=== PATIENT | male | born 1945 | race Caucasian/White ===

== ENCOUNTER 2016-10-16 19:29 | Inpatient (IN) | payer MEDICARE, OTHER ==
--- NOTE | ~2016-10-16 | DS ---
Discharge Summary [facility] [address] [place]. [address] NAME: RENETTA RODRIGUES : 45 STATUS : DIS IN PAT#: [id number] AGE: 71 ADM/REG DATE : 10/16/16 MR#: [id number] REPORT SERV DATE: 10/21/16 DICTATED BY: VENICE REA DATE: 10/20/16 REPORT STATUS : Draft TRANSCRIBED BY: MODL DATE: 10/20/16 ADMISSION DATE: 10/16/2016 DISCHARGE DATE: 10/20/2016 PRINICIPAL DIAGNOSIS: Crohn's disease with exacerbation and partial small-bowel obstruction. SECONDARY DIAGNOSES: 1. Type 2 diabetes exacerbated by steroids. 2. Chronic obstructive pulmonary disease. 3. Atrial fibrillation. 4. Sleep apnea. HISTORY OF PRESENT ILLNESS: Please see Dr. Song's dictation of 10/16/2016. HOSPITAL COURSE: Admitted with symptoms of small-bowel obstruction with chronic diarrhea but episode of nausea and vomiting. There was a concern about stricture formation, seen by Surgery, but not felt to be surgical, in fact the patient on steroids and antibiotics had some improvement in his gut function returning to his baseline diarrhea. However, it was felt that the patient was not optimally controlled despite Imuran therapy and salicylates. He was put on intravenous steroids and transitioned to p.o. steroids by 10/21/2016 but with a consideration for Remicade to be started within coming days. He was tolerating advancement of his diet, eating well, and other than some elevated blood sugar was doing well enough, and he returned home on 10/21/2016. He was increasing his Lantus to 50 units at bedtime with 10 units of NovoLog with meals. Close followup Dr. Matt River regarding his glucose. Close followup with Dr. Chandler Beard regarding his Crohn's. Other medications were the same. VANESSAM/MARION Venice Rea M.D. / [id number] CC: Caterina Boland M.D. Vijaykurmar Patel, M.D.
--- NOTE | ~2016-10-16 | CN ---
Consultation Report [facility] [address] [place]. [address] NAME: RENETTA RODRIGUES : 45 STATUS : ADM IN PAT#: [id number] AGE: 71 ADM/REG DATE : 10/16/16 MR#: [id number] REPORT SERV DATE: 10/18/16 DICTATED BY: SHELIA DOMINGUEZ DATE: 10/17/16 REPORT STATUS : Draft TRANSCRIBED BY: MODL DATE: 10/17/16 GI CONSULTATION DATE OF CONSULTATION: REASON FOR CONSULTATION: Crohn's exacerbation. HISTORY OF PRESENT ILLNESS: This is a 71-year-old white male who is a patient of Dr. Chandler Sánchez. He has history of Crohn disease which he had a colonoscopy in October 2003 with pathology showing focal ulceration with mixed inflammation in the terminal ileum. The causes though did include ileitis from Crohn's and NSAIDs. He has had a colonoscopy in May 2012 that showed normal terminal ileum and ascending polyp and hemorrhoids. Pathology showed the polyp to be adenomatous. He has come in with complaints of abdominal distention and discomfort, nausea, and decreased stooling. He was found on CT to have what appeared to be multiple segments of the distal ileum with prominent submucosal fat planes and sequelae of inflammatory bowel disease with no active changes. He had a low-grade partial small bowel obstruction with dilated small bowel segments. He also is status post cholecystectomy and has a small umbilical fat containing hernia. He had a KUB done that did show a worsening of the obstructive pattern. He has had a bowel movement today and passed gas and feels much better and feels the abdominal distention has lessened a great deal. The patient denies any fever, did report having some chills. He is currently on Imuran. He has tried Humira in the past which caused him to go into heart failure. There were interested. He and his were present and report a similar episode about two years ago which was worse requiring an OG tube for decompression. PAST MEDICAL HISTORY: Does include kidney stones, gout, BPH, asbestosis exposure, GERD, CVA, coronary artery disease, atrial fibrillation, diabetes, Crohn's disease, COPD, elevated cholesterol, vertigo, anemia, hypertension, obstructive sleep apnea. PAST SURGICAL HISTORY: Includes coronary artery bypass grafting, appendectomy, cholecystectomy, umbilical hernia repair, right shoulder repair and left shoulder repair, and elbow surgery. SOCIAL HISTORY: Noncontributory. REVIEW OF SYSTEMS: 10-point review of systems, otherwise negative. HABITS: He was former smoker. Denies any current smoking. He quit when he was 40 years old. No alcohol abuse. No drugs. Currently for 52 years. Resides in [place]. ALLERGIES: MORPHINE. HOME MEDICATIONS: Includes albuterol, allopurinol, artificial tears, Lipitor, azathioprine Consultation Report [address] [place]. [address] NAME: RENETTA RODRIGUES : 45 STATUS : ADM IN [facility]#: [id number] AGE: 71 ADM/REG DATE : 10/16/16 MR#: [id number] REPORT SERV DATE: 10/18/16 DICTATED BY: SHELIA DOMINGUEZ DATE: 10/17/16 REPORT STATUS : Draft TRANSCRIBED BY: MARION DATE: 10/17/16 50 mg twice a day, Zyrtec, Klonopin, dicyclomine, diltiazem, Pepcid, Flonase, Advair, insulin, lisinopril, Imodium, Pentasa, multivitamin, nitroglycerin, sucralfate, Spiriva, Jantoven. CURRENT MEDICATIONS: In hospital include Levaquin, Solu-Medrol, Levemir, Coumadin, Spiriva, Pentasa, Prinivil, Pepcid, Imuran, Zyloprim, insulin, Carafate, Bentyl. PHYSICAL EXAMINATION: VITAL SIGNS: Temp is 97.9, blood pressure 133/60, pulse 110, respirations 20. HEENT: Normocephalic, atraumatic. Extraocular muscles are intact. HEART: Irregular. LUNGS: Clear to auscultation bilaterally without rales or rhonchi. ABDOMEN: Few bowel sounds heard. Mild distention. He has some tenderness mainly in the left lower quadrant. EXTREMITIES: No cyanosis, clubbing, or edema. NEUROLOGIC: He is alert and oriented, and answers questions appropriately. PSYCHIATRIC: Normal mood and affect. IMPRESSION: 1. Crohn's exacerbation. 2. Partial small bowel obstruction, appears to be resolving. 3. History of paroxysmal atrial fibrillation on Coumadin. 4. Diabetes. 5. Sleep apnea. 6. Chronic obstructive pulmonary disease. RECOMMENDATION: 1. I agree with antibiotics. We will put him on also Solu-Medrol 20 q. 6 hours. 2. We will need to monitor his blood sugar while on steroids. 3. Mild liver enzyme elevation. We will repeat liver enzymes in the morning. 4. Discussed with the patient may be alternative treatments that we could try to help with his Crohn's. At this point, we will continue current management. SPENCER/MARION Shelia Dominguez M.D. / [id number] CC: Caterina Boland M.D.
--- NOTE | ~2016-10-16 | HP ---
History And Physical [address] [place]. [address] NAME: RENETTA RODRIGUES : 45 STATUS : ADM IN [facility]#: [id number] AGE: 71 ADM/REG DATE : 10/16/16 MR#: [id number] REPORT SERV DATE: 10/17/16 DICTATED BY: LAURA AQUINO DATE: 10/16/16 REPORT STATUS : Draft TRANSCRIBED BY: MODL DATE: 10/16/16 DATE OF ADMISSION: 10/16/2016 CHIEF COMPLAINT: A 71-year-old male presenting with increasing abdominal pain and distention. HISTORY OF PRESENTING ILLNESS: The patient's history was obtained through careful interview with the patient and coupled with review of [facility] and [facility] medical records. The patient, for the last three days, has had increasing abdominal distention. He has tried to decrease his food intake and take mild pain medications to help with this problem. He has developed increasing nausea, but no vomiting as of yet. Last night, the pain became so severe that he could not even sleep, but then he tried to tolerate the pain throughout the day and then finally had to come to the emergency department. He describes lower quadrant abdominal pain, mostly that comes and goes, a shooting like quality up to 10+ out of 10 severity, affecting his left side more than the right. His last bowel movement was more than 24 hours ago and he has not even passed the gas over that period of time. He has had chills and shaking, but no fevers. He has a chronic cough for three months or more with a slight intermittently productive yellow sputum. No shortness of breath. No chest pain. No recent new medications. REVIEW OF SYSTEMS: Otherwise, a 14-point review of systems was obtained and was negative. PAST MEDICAL HISTORY: 1. Coronary artery disease, status post CABG. 2. Atrial fibrillation, followed by Dr. Tse. 3. Diabetes. He admits to being poorly compliant with his diet and medications at that time. Some blood sugars have been over 200. 4. Crohn's colitis, but has never had a surgical intervention for this. 5. COPD. 6. Elevated cholesterol. 7. Vertigo. 8. Anemia. 9. Hypertension. 10.Obstructive sleep apnea, on CPAP. 11.Asbestosis. History And Physical [address] [address] NAME: RENETTA RODRIGUES : 45 STATUS : ADM IN PAT#: [id number] AGE: 71 ADM/REG DATE : 10/16/16 MR#: [id number] REPORT SERV DATE: 10/17/16 DICTATED BY: LAURA AQUINO DATE: 10/16/16 REPORT STATUS : Draft TRANSCRIBED BY: MODStephania DATE: 10/16/16 12.Gastroesophageal reflux disorder. 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 14.Nephrolithiasis. 15.Benign prostatic hypertrophy. 16.Gout. PAST SURGICAL HISTORY: 1. CABG, 2006. 2. Appendectomy. 3. Cholecystectomy. 4. Umbilical hernia repair, seen by Dr. Hidalgo. 5. Right shoulder repair x2. Left shoulder repair x1. 6. Elbow surgery x2. ALLERGIES: MORPHINE. SOCIAL HISTORY: Quit smoking when he was 40 years old, but had smoked about two packs per day since he was 15 years of age. No alcohol abuse. He has been to his for 52 years. They have two sons, two granddaughters. They lived in [place], [place]. He is retired for working to the [employer]. He states for at least a decade he used to do significant work with asbestos while working with the [employer] and likely had extensive exposure. FAMILY HISTORY: Mother with pacemaker and kidney tumor. Father with heart disease and stroke. No inflammatory bowel disease. CURRENT MEDICATIONS: Include albuterol inhaler, allopurinol 150 mg p.o. daily, eye drops, Lipitor 20 mg p.o. daily, Imuran 50 mg p.o. b.i.d., Zyrtec 10 mg p.o. daily, Klonopin 1 mg p.o. q.h.s., Bentyl 20 mg p.o. q.4 hours four times a day, diltiazem extended release 360 mg p.o. daily, Pepcid 20 mg p.o. daily, Flonase, Advair inhaled twice a day, Lantus 35 units subcutaneously at bedtime, sliding-scale insulin, lisinopril 20 mg p.o. b.i.d., Imodium p.r.n., Pentasa a 1000 mg p.o. four times a day, multivitamin, nitroglycerin p.r.n., sucralfate 1 g before meals and at bedtime, Spiriva inhaled daily, Coumadin 5.5 mg p.o. q.h.s. PHYSICAL EXAMINATION: VITAL SIGNS: Temperature 98.6, pulse 83, blood pressure 167/72, respiratory rate 16, O2 saturation 97% on room air. GENERAL: A pleasant, cooperative male, but in evidence of some distress secondary to abdominal pain and nausea. HEENT: Pupils equal, round, and reactive to light. No conjunctival pallor. No scleral icterus. Nares are patent. Oropharynx is clear of obstruction. He may have some slight sores in the back of his mouth. He has a very dry mucous membrane. NECK: Trachea midline. No thyromegaly. LYMPH: No cervical lymphadenopathy. No supraclavicular lymphadenopathy. RESPIRATORY: Clear to auscultation at bases. No wheezes, rales, or rhonchi. Normal respiratory effort. History And Physical [address] [address] NAME: RENETTA RODRIGUES : 45 STATUS : ADM IN PAT#: [id number] AGE: 71 ADM/REG DATE : 10/16/16 MR#: [id number] REPORT SERV DATE: 10/17/16 DICTATED BY: LAURA AQUINO DATE: 10/16/16 REPORT STATUS : Draft TRANSCRIBED BY: MARION DATE: 10/16/16 CARDIOVASCULAR: Regular rate and rhythm. No murmurs, rubs, or gallops. No extremity edema is appreciated. ABDOMEN: Quite distended by exam with diffuse tympanic, resonance, percussed throughout entire examination. There is no guarding, no rebound. Diminished bowel tones. Even in some parts of his abdominal exam they are absent. He has no appreciable hepatosplenomegaly. DERMATOLOGIC: Warm and dry. EXTREMITIES: No pallor. No cyanosis. PSYCHIATRIC: Normal affect. Good mood. Alert and oriented x3. LABORATORY DATA: White blood count of 5.6, hemoglobin 12, hematocrit 36, platelets 208. Sodium 141, potassium 4.1, chloride 104, bicarb 26, BUN 14, creatinine 0.87, glucose 118. ESR 29. INR 2.2. Lipase 57. Total bilirubin of 1.8. STUDIES: 1. EKG by my own evaluation shows sinus rhythm. 2. CT scan of the abdomen and pelvis shows partial small bowel obstruction. There seems to be some evidence that this may be coming from chronic inflammatory changes of the ileum with apparent changes that are consistent with Crohn's disease, although difficult to ascertain by CT scan if there is truly acute versus just chronic Crohn's disease apparently. ASSESSMENT AND PLAN: 1. Crohn's exacerbation. This is a presumptive diagnosis. I would like to start IV steroids, IV Levaquin, and Flagyl and monitor closely. 2. Partial small bowel obstruction. Unable to place an NG tube secondary to a nasal septum defect. May need an OG tube (?). Place on IV fluids and make n.p.o., provide supportive care. Consider a surgery consult (?). The patient had seen Dr. Nnamdi Hidalgo in the past). 3. Paroxysmal atrial fibrillation. Check telemetry. Continue Coumadin. 4. Diabetes. Check hemoglobin A1c. Continue basal insulin and sliding scale insulin. 5. Obstructive sleep apnea, on CPAP. 6. Chronic obstructive pulmonary disease. KPL/MODL Laura Aquino M.D. / [id number] CC: Caterina Boland M.D. Vijaykurmar Patel, M.D.
[2016-10-16 16:34] LABS: BASOPHILS 0.4 %; BASOPHILS ABSOLUTE 0.02 10/3/uL (0.0-0.16); EOSINOPHILS ABSOLUTE 0.11 10/3/uL (0.0-0.53); ER CBC TAT 0 Hrs 07 Mins; HEMOGLOBIN 12.3 g/dL (13.6-17.8); IMMATURE GRANULOCYTES 0.7 %; IMMATURE GRANULOCYTES ABSOLUTE 0.04 10/3/uL (0.0-0.11); LYMPHOCYTES 20.6 %; LYMPHOCYTES ABSOLUTE 1.15 10/3/uL (0.67-4.30); MEAN CORPUS HGB CONC 34.2 g/dL (32.0-36.0); MEAN CORPUSCULAR HEMOGLOB 32.5 pg (26.0-34.0); MEAN PLATELET VOLUME 10.5 fL (9.2-13.0); MONOCYTES 10.2 %; MONOCYTES ABSOLUTE 0.57 10/3/uL (0.21-1.20); NEUTROPHILS 66.1 %; PLATELET COUNT 208 10/3/uL (150-400); RED CELL COUNT 3.78 10/6/uL (4.7-6.1); WHITE BLOOD CELLS 5.6 10/3/uL (4.5-10.5)
[2016-10-16 16:38] LABS: MANUAL DIFF NO %; MEAN CORPUSCULAR VOLUME 95.2 fL (80-100); RBC DISTRIBUTION WIDTH 17.7 % (12.0-16.0)
[2016-10-16 16:44] LABS: ASCORBIC ACID (UR NOT ORDER) NEG (NEG); BILIRUBIN, URINE NEGATIVE (NEG); KETONE, URINE TRACE MG/DL (NEG); LEUKOCYTE ESTERASE(NOT OR NEG (NEG); NITRITE (URINE) NEG (NEG); WBC (NOT ORDERED) (RFLEX) < 1 (0-5)
[2016-10-16 16:50] LABS: A/G RATIO 1.2 (0.7-1.9); ALBUMIN 3.6 G/DL (3.5-5.0); BUN (BLOOD UREA NITROGEN) 14 MG/DL (6-23); CALCIUM, SERUM 8.4 MG/DL (8.5-10.4); CHLORIDE, SERUM 104 MMOL/L (96-112); CO2 (CARBON DIOXIDE) 26 MMOL/L (24-34); CREATININE 0.87 MG/DL (0.70-1.30); GFR AFRICAN AMERICAN 101 ML/MIN (>=60); GFR NON AFRICAN AMERICAN 87 ML/MIN (>=60); GLOBULIN 3.1 G/DL (2.5-4.1); GLUCOSE, SERUM 118 MG/DL (60-99); POTASSIUM, SERUM 4.1 MMOL/L (3.5-5.3); SGOT(AST) 53 U/L (5-40); SGPT(ALT) 41 U/L (5-65); SODIUM, SERUM 141 MMOL/L (135-148); TOTAL BILIRUBIN 1.8 MG/DL (0-1.2); TOTAL PROTEIN 6.7 G/DL (6.0-8.5)
[2016-10-16 16:51] LABS: ALKALINE PHOSPHATASE 159 U/L (45-117)
[2016-10-16 17:53] LABS: INTERNATIONAL NORMAL RATI 2.2 UNITS (-); PARTIAL THROMBO TIME 43.3 SEC (22.5-37.2); PROTIME (NOT ORD) 23.9 SEC (12.0-14.5)
[2016-10-16 18:16] LABS: SED RATE 29 MM/HR (0-15)
[~2016-10-16 19:29] MED LIST: ADVAIR250 INH; BENTYL10 PO; BENTYL20 PO; BUM1 PO; BYETTA SC; C1 PO; C25 PO; C5 PO; CARDCD300 PO; CARDIZEM LA300 MG PO; CARDIZEM LA360 MG PO; CENTRUM TAB1 TAB PO; CETIRIZINE5 MG PO; CLARIT10 PO; COUMADIN3 MG PO; COUMADIN6 MG PO; FOLIC ACID PO; FOLIC ACID400 MC1 PO; Folic Acid; HUMALOG SC; IMU PO; JANTOVEN1 MG PO; KLONO1 PO; KLONOPIN WAF1 MG PO; LANTUS SC; LIPITOR20 PO; MULTIPLE VIT PO; NATURA2 OP; NEXIUM40 PO; NOVOLOG SC; PENTASA500 MG PO; PEP20 PO; PRILO PO; PRIN10 PO; PRIN20 PO; PROAIR HFA INH; SPIRIVA INH; SUCR PO; TAZTIA X3 PO; TRICOR145 PO; Z100 PO; ZOCOR20 PO; ZOL50 PO; ZYRTEC ALLGY10 MG PO; [UNRECOGNIZED DRUG - OTHER] PO; [UNRECOGNIZED DRUG - OTHER] PO
[2016-10-16] MEDS ORDERED: JANTOVEN1 MG PO (22:43)
[2016-10-16] MEDS ORDERED: PRIN20 PO (22:44)
[2016-10-16] MEDS ORDERED: LIPITOR20 PO (22:44)
[2016-10-16] MEDS ORDERED: KLONO1 PO (22:45)
[2016-10-16] MEDS ORDERED: Z100 PO (22:45)
[2016-10-16] MEDS ORDERED: IMU PO (22:46)
[2016-10-16] MEDS ORDERED: BENTYL20 PO (22:48)
[2016-10-16] MEDS ORDERED: PEP20 PO (22:48)
[2016-10-16] MEDS ORDERED: PROAIR HFA INH (22:49)
[2016-10-16] MEDS ORDERED: ADVAIR250 INH (22:49)
[2016-10-16] MEDS ORDERED: ALBUTEROL0.083 % INH (22:50)
[2016-10-16] MEDS ORDERED: SPIRIVA INH (22:51)
[2016-10-16] MEDS ORDERED: ZYRTEC ALLGY10 MG PO (22:51)
[2016-10-16] MEDS ORDERED: PENTASA500 MG PO (22:52)
[2016-10-16] MEDS ORDERED: SUCR PO (22:52)
[2016-10-16] MEDS ORDERED: LANTUSCART SC (22:53)
[2016-10-16] MEDS ORDERED: TAZTIA X3 PO (22:53)
[2016-10-16] MEDS ORDERED: HUMALOGPEN SC (22:53)
[2016-10-16] MEDS ORDERED: IMOD PO (22:54)
[2016-10-16] MEDS ORDERED: FLONASE NAS (22:55)
[2016-10-16] MEDS ORDERED: REFRESH OPH (22:56)
[2016-10-16] MEDS ORDERED: CENTRUM PO (22:56)
[2016-10-16] MEDS ORDERED: NITROQUICK0.4 MG SL (22:57)
[2016-10-17 05:40] LABS: BASOPHILS 0 %; EOSINOPHILS 0.2 %; EOSINOPHILS ABSOLUTE 0.01 10/3/uL (0.0-0.53); HEMATOCRIT 34.6 % (40.0-51.0); HEMOGLOBIN 12.1 g/dL (13.6-17.8); IMMATURE GRANULOCYTES 1.2 %; IMMATURE GRANULOCYTES ABSOLUTE 0.05 10/3/uL (0.0-0.11); LYMPHOCYTES 8.9 %; LYMPHOCYTES ABSOLUTE 0.37 10/3/uL (0.67-4.30); MEAN CORPUSCULAR HEMOGLOB 33.8 pg (26.0-34.0); MEAN CORPUSCULAR VOLUME 96.6 fL (80-100); MEAN PLATELET VOLUME 11.1 fL (9.2-13.0); MONOCYTES 1.2 %; MONOCYTES ABSOLUTE 0.05 10/3/uL (0.21-1.20); NEUTROPHILS 88.5 %; NEUTROPHILS ABSOLUTE 3.66 10/3/uL (2.02-8.40); PLATELET COUNT 175 10/3/uL (150-400); RBC DISTRIBUTION WIDTH 17.5 % (12.0-16.0); RED CELL COUNT 3.58 10/6/uL (4.7-6.1); WHITE BLOOD CELLS 4.1 10/3/uL (4.5-10.5)
[2016-10-17 05:46] LABS: PARTIAL THROMBO TIME 48.5 SEC (22.5-37.2); PROTIME (NOT ORD) 22.6 SEC (12.0-14.5)
[2016-10-17 05:49] LABS: MANUAL DIFF NO %
[2016-10-17 06:08] LABS: A/G RATIO 1.1 (0.7-1.9); ALBUMIN 3.3 G/DL (3.5-5.0); BUN (BLOOD UREA NITROGEN) 14 MG/DL (6-23); CALCIUM, SERUM 8.3 MG/DL (8.5-10.4); CHLORIDE, SERUM 103 MMOL/L (96-112); CO2 (CARBON DIOXIDE) 25 MMOL/L (24-34); CREATININE 0.93 MG/DL (0.70-1.30); GFR AFRICAN AMERICAN 95 ML/MIN (>=60); GFR NON AFRICAN AMERICAN 82 ML/MIN (>=60); GLOBULIN 3.1 G/DL (2.5-4.1); POTASSIUM, SERUM 4.8 MMOL/L (3.5-5.3); SGOT(AST) 73 U/L (5-40); SGPT(ALT) 51 U/L (5-65); SODIUM, SERUM 135 MMOL/L (135-148); TOTAL PROTEIN 6.4 G/DL (6.0-8.5)
[2016-10-17 06:10] LABS: ALKALINE PHOSPHATASE 187 U/L (45-117); GLUCOSE, SERUM 218 MG/DL (60-99); TOTAL BILIRUBIN 1.2 MG/DL (0-1.2)
[2016-10-18 06:57] LABS: BASOPHILS 0.1 %; BASOPHILS ABSOLUTE 0.01 10/3/uL (0.0-0.16); EOSINOPHILS 0 %; IMMATURE GRANULOCYTES 0.7 %; IMMATURE GRANULOCYTES ABSOLUTE 0.05 10/3/uL (0.0-0.11); LYMPHOCYTES 5.9 %; LYMPHOCYTES ABSOLUTE 0.45 10/3/uL (0.67-4.30); MEAN CORPUS HGB CONC 35.5 g/dL (32.0-36.0); MEAN PLATELET VOLUME 11.1 fL (9.2-13.0); MONOCYTES 4.5 %; MONOCYTES ABSOLUTE 0.34 10/3/uL (0.21-1.20); NEUTROPHILS 88.8 %; NEUTROPHILS ABSOLUTE 6.79 10/3/uL (2.02-8.40); PLATELET COUNT 191 10/3/uL (150-400); RED CELL COUNT 3.33 10/6/uL (4.7-6.1)
[2016-10-18 06:58] LABS: MANUAL DIFF NO %; MEAN CORPUSCULAR VOLUME 93.1 fL (80-100); WHITE BLOOD CELLS 7.6 10/3/uL (4.5-10.5)
[2016-10-18 07:03] LABS: INTERNATIONAL NORMAL RATI 1.8 UNITS (-); PROTIME (NOT ORD) 20.5 SEC (12.0-14.5)
[2016-10-18 07:14] LABS: ALBUMIN 3.2 G/DL (3.5-5.0); CALCIUM, SERUM 8.2 MG/DL (8.5-10.4); CHLORIDE, SERUM 103 MMOL/L (96-112); CO2 (CARBON DIOXIDE) 23 MMOL/L (24-34); CREATININE 1.13 MG/DL (0.70-1.30); DIRECT BILIRUBIN 0.2 MG/DL (0.0-0.4); GFR AFRICAN AMERICAN 75 ML/MIN (>=60); GFR NON AFRICAN AMERICAN 65 ML/MIN (>=60); GLUCOSE, SERUM 204 MG/DL (60-99); SGOT(AST) 39 U/L (5-40); SGPT(ALT) 38 U/L (5-65); SODIUM, SERUM 138 MMOL/L (135-148); TOTAL PROTEIN 6.1 G/DL (6.0-8.5)
[2016-10-18 07:15] LABS: ALKALINE PHOSPHATASE 158 U/L (45-117); BUN (BLOOD UREA NITROGEN) 18 MG/DL (6-23); GAMMA GT 288 U/L (5-85); INDIRECT BILIRUBIN(NOT ORDER) 0.5 MG/DL (0.1-0.9); POTASSIUM, SERUM 3.7 MMOL/L (3.5-5.3); TOTAL BILIRUBIN 0.7 MG/DL (0-1.2)
[2016-10-19 06:03] LABS: INTERNATIONAL NORMAL RATI 2.2 UNITS (-)
[2016-10-19 06:04] LABS: PROTIME (NOT ORD) 24.2 SEC (12.0-14.5)
[2016-10-20] MEDS ORDERED: FLAG500TAB PO (10:48)
[2016-10-20] MEDS ORDERED: LEVAQUIN5T PO (10:49)
[2016-10-20] MEDS ORDERED: COUMADIN3 MG (10:50)
[2016-10-20] MEDS ORDERED: P20 PO (10:52)
[2016-10-21 12:49] LABS: HEPATITIS B SURFACE ANTIGEN NON-REACTIVE (NON-REACT)
[2016-10-21 13:15] LABS: HEPATITIS C ANTIBODY NON-REACTIVE (NON-REACT)
[2016-10-21 13:17] LABS: HEPATITIS B CORE AB IGM NON-REACTIVE (NON-REAC)
[2016-10-21 13:18] LABS: HEP A ANTIBODY IGM NON-REACTIVE (NON-REACT)
[2017-01-07] MEDS ORDERED: CEFT5 PO (15:51)
[2017-01-14] MEDS ORDERED: PEP20 PO (13:14)
[2017-01-14] MEDS ORDERED: PRILO PO (13:16)
[2017-01-14] MEDS ORDERED: IMU PO (13:18)
[2017-01-15] MEDS ORDERED: SPIRIVA INH (02:07)
[2017-01-15] MEDS ORDERED: ADVAIR250 INH (02:07)
[2017-01-15] MEDS ORDERED: VENTOLIN HFA INH (02:07)
[2017-01-15] MEDS ORDERED: CORDARONE PO (02:08)
[2017-01-15] MEDS ORDERED: FLONASE NAS (02:08)
[2017-01-15] MEDS ORDERED: ALBUTEROL0.083 % INH (02:08)
[2017-01-15] MEDS ORDERED: C5 PO (02:09)
[2017-01-15] MEDS ORDERED: IMU PO (02:09)
[2017-01-15] MEDS ORDERED: SUCR PO (02:09)
[2017-01-15] MEDS ORDERED: PEP20 PO (02:09)
[2017-01-15] MEDS ORDERED: CARDCD240 PO (02:09)
[2017-01-15] MEDS ORDERED: Z100 PO (02:10)
[2017-01-15] MEDS ORDERED: ZYRTEC ALLGY10 MG PO (02:10)
[2017-01-15] MEDS ORDERED: PROBIOTIC OTC PO (02:10)
[2017-01-15] MEDS ORDERED: NOVOLOG SC ×2 (02:12)
[2017-01-15] MEDS ORDERED: FOLIC ACID400 MC1 PO (02:13)
[2017-01-15] MEDS ORDERED: CYANO1000T PO (02:13)
[2017-01-15] MEDS ORDERED: LANTUSCART SC (02:13)
[2017-01-15] MEDS ORDERED: CENTRUM PO (02:13)
[2017-01-15] MEDS ORDERED: KLONO1 PO (02:13)
[2017-01-15] MEDS ORDERED: LOP25 PO (02:14)
[2017-01-15] MEDS ORDERED: KLONO5 PO (02:14)
[2017-01-15] MEDS ORDERED: P10 PO (02:15)
[2017-01-15] MEDS ORDERED: VIBRATAB100 MG PO (02:15)
[2017-01-15] MEDS ORDERED: PENTASA500 MG PO (02:16)
[2017-01-15] MEDS ORDERED: CEFT5 PO (02:16)
[2017-01-15] MEDS ORDERED: LIPITOR20 PO (02:17)
[2017-01-15] MEDS ORDERED: NITROSTAT0.4 MG SL (02:18)
[2017-01-20] MEDS ORDERED: FLORASTOR250 MG PO (10:45)
[2017-01-20] MEDS ORDERED: OMNICEF300 PO (10:48)
== END 2016-10-20 16:07 | disposition home or self-care (01) | DRG 386 ==
LOC: ER 19:29 → 7NO 23:06
PROVIDERS: Emergency Medicine; Hospitalist; Internal Medicine; Internal Medicine Gastroenterology
DX: K50.912 Crohn's disease, unspecified, with intestinal obstruction (principal); I48.0 Paroxysmal atrial fibrillation; J44.9 Chronic obstructive pulmonary disease, unspecified; E11.9 Type 2 diabetes mellitus without complications; G47.33 Obstructive sleep apnea (adult) (pediatric); I10 Essential (primary) hypertension; K21.9 Gastro-esophageal reflux disease without esophagitis
CPT/HCPCS: 74000; 74020; 74176; 80048; 80053; 80074; 80076; 81001; 82962; 82977; 83036; 83690; 83735; 84443; 85025; 85610; 85652; 85730; 86255; 93005; 94640; 96374; 96375; 99285; A9270-GY; J1170; J1956; J1980; J2550; J2920; J7500

== ENCOUNTER 2016-11-19 17:59 | Inpatient (IN) | payer MEDICARE, OTHER ==
--- NOTE | ~2016-11-19 | CN ---
Consultation Report [facility] [address] [place]. [address] NAME: RENETTA LARSON : 45 STATUS : ADM IN PAT#: [id number] AGE: 71 ADM/REG DATE : 11/19/16 MR#: [id number] REPORT SERV DATE: 11/20/16 DICTATED BY: JASWINDER VALENCIA DATE: 11/20/16 REPORT STATUS : Draft TRANSCRIBED BY: MARION DATE: 11/20/16 CARDIOLOGY CONSULTATION NOTE DATE OF CONSULTATION: 11/20/2016 CHIEF COMPLAINT: Shortness of breath. REASON FOR CONSULTATION: Atrial fibrillation. SOURCE: The patient chart. HISTORY OF PRESENT ILLNESS: Mr. Larson is a very pleasant 71-year-old white man with history of paroxysmal atrial fibrillation and coronary artery disease, status post coronary artery bypass grafting as well as occupational lung disease. While I last saw in the office in July since then he had a Crohn disease flare in September. Six days ago, he presented to physician's care and was diagnosed with pneumonia and given steroids and antibiotics. Yesterday, he had a fever to 100.6 degrees Fahrenheit and his breathing became much worse. He "could not breathe" and came to the [facility] Room and was admitted for further care. He has been found to have a loculated left pleural effusion and atrial fibrillation with rapid ventricular response. He was treated with rate control. He is feeling a little better today. He has had some palpitations and dizziness, but no syncope. No chest pain. He reports that he had been taking his diltiazem and warfarin. He has had three or four spells per week over the last four months of irregular heart beat. REVIEW OF SYSTEMS: All other systems are negative. ALLERGIES: PER HIS HOME LIST INCLUDE MORPHINE AND ADHESIVE TAPE. MEDICATIONS: As per his home list include albuterol, allopurinol, atorvastatin, azathioprine, cefdinir, cetirizine, clonazepam, dicyclomine, famotidine, fluticasone, insulin, lisinopril, mesalamine, methocarbamol, sucralfate, tiotropium, warfarin. CARDIAC RISK FACTORS: Included hypertension, diabetes, and tobacco use, former. PAST MEDICAL HISTORY: Significant for coronary artery disease, status post coronary artery bypass grafting, 05/2007; normal left ventricular systolic function by last echocardiogram, 07/2014; paroxysmal atrial fibrillation; CHADS2 score of 2, on Coumadin therapy; diabetes; hypertension; hyperlipidemia; sleep apnea; obesity; occupational lung disease; Crohn disease. SOCIAL HISTORY: Former tobacco. Now ceased. FAMILY HISTORY: Not contributory. Consultation Report [facility] [address] [place]. [address] NAME: RENETTA LARSON : 45 STATUS : ADM IN PAT#: [id number] AGE: 71 ADM/REG DATE : 11/19/16 MR#: [id number] REPORT SERV DATE: 11/20/16 DICTATED BY: JASWINDER VALENCIA DATE: 11/20/16 REPORT STATUS : Draft TRANSCRIBED BY: MARION DATE: 11/20/16 PHYSICAL EXAMINATION: GENERAL: He is well-developed, well-nourished, elderly white man, in no acute distress. VITAL SIGNS: Blood pressure is 145/65, pulse 108, temperature 99.5. HEENT: Sclerae anicteric. Lips without cyanosis. Carotids 2+ and symmetrical. No bruits. No JVD. No thyromegaly. LUNGS: Clear to auscultation. No use of accessory muscles. HEART: irregularly irregular without murmur, gallop, or rub. ABDOMEN: Positive bowel sounds. Soft, nontender. EXTREMITIES: Pulses 2+ and symmetrical. No cyanosis, clubbing, or edema. BACK: No CVA tenderness. MUSCULOSKELETAL: Good tone. NEURO: Alert and oriented x3. IMAGING: EKG reveals atrial fibrillation with rapid ventricular response and PVCs. LABORATORY EXAMINATION: PTT of 69. Legionella urine is negative. Strep pneumonia antigen is negative. The chest x-ray, PA and lateral, reveals localized well-circumscribed density, left major fissure consistent with localized fluid. The urinalysis, dip negative. The procalcitonin of 0.12. The sodium 140, potassium 4.1, chloride 102, CO2 of 30, glucose 148, BUN 14, creatinine 0.95. TSH 1.82, free T4 1.19, both normal. Lactate 1.8. White count 6.1, hemoglobin 11.2, hematocrit 33.3, platelets 255,000, INR 1.4. His BNP level was 51, normal. CTA chest revealed no CT evidence of pulmonary embolus, small nonspecific loculated pleural effusion along the left major fissure. Calcified pleural plaque posterior left lung base most consistent with chronic sequelae of remote asbestos exposure, status post CABG, no cardiomegaly or acute CHF. IMPRESSION: 1. Atrial fibrillation with rapid ventricular response likely exacerbated by a recent medical illness. 2. History of paroxysmal atrial fibrillation. 3. CHADS2 score of 2 for diabetes and hypertension, on Coumadin therapy with subtherapeutic INR. 4. Coronary artery disease, status post coronary artery bypass grafting, 05/2007. 5. Previously normal left ventricular systolic function by echo, 07/2014. 6. Recent Crohn's flare. 7. Loculated pleural effusion, possible recent pneumonia. 8. Hypertension, currently under good control. 9. Diabetes mellitus. 10.Hyperlipidemia. 11.Sleep apnea. 12.Obesity. RECOMMENDATIONS: 1. Intravenous to oral diltiazem. Increase oral diltiazem dose for rate control. Consultation Report [address] [place]. [address] NAME: RENETTA LARSON : 45 STATUS : ADM IN PAT#: [id number] AGE: 71 ADM/REG DATE : 11/19/16 MR#: [id number] REPORT SERV DATE: 11/20/16 DICTATED BY: JASWINDER VALENCIA DATE: 11/20/16 REPORT STATUS : Draft TRANSCRIBED BY: MARION DATE: 11/20/16 2. Continue heparin to Coumadin as you are doing. 3. Treat underlying illness, consider drainage of his pleural effusion. 4. Amiodarone was considered; however, he has a history of occupational lung disease and I am not attracted to this option at this point. Additionally he has coronary artery disease, history excludes several other antiarrhythmic drugs. 5. Check echocardiogram. LINDA/MARION Jaswinder Valencia M.D. / [id number] CC: Caterina Casillas M.D.
--- NOTE | ~2016-11-19 | DS ---
Discharge Summary [facility] [address] [place]. [address] NAME: RENETTA RODRIGUES : 45 STATUS : DIS IN PAT#: [id number] AGE: 71 ADM/REG DATE : 11/19/16 MR#: [id number] REPORT SERV DATE: 11/25/16 DICTATED BY: DATE: REPORT STATUS : Draft TRANSCRIBED BY: MODL DATE: 11/24/16 ADMISSION DATE: 11/19/2016 DISCHARGE DATE: 11/23/2016 The patient was admitted to the [facility] Hospitalist Service. CONSULTANTS: Included Dr. Tse of the [facility] and Dr. Rivera of Pulmonology. DISCHARGE DIAGNOSES: 1. Multifactorial dyspnea. 2. Atrial fibrillation with rapid ventricular response at admission, status post successful cardioversion on 11/22/2016, discharged in normal sinus rhythm with normal heart rate and therapeutic INR. 3. Small loculated effusion in the left major fissure -- unclear significance. Possibly due to recently diagnosed community-acquired pneumonia versus history of asbestos exposure. For outpatient imaging and followup with Dr. Betty Bonner. 4. Relative adrenal insufficiency after prolonged steroid taper. 5. Recent Crohn's exacerbation. 6. Pseudomonas in the stool -- of unclear significance. No clinical evidence of enterocolitis. 7. Insulin-dependent diabetes mellitus type 2 with steroid-induced hyperglycemia. 8. Coronary artery disease with remote coronary artery bypass graft. 9. Chronic obstructive pulmonary disease. 10.Obstructive sleep apnea, on CPAP. 11.Hypertension. 12.Hyperlipidemia. 13.Benign prostatic hypertrophy. 14.History of prior cerebellar cerebrovascular accident. 15.Gastroesophageal reflux disease. IMAGIN. PA and lateral chest x-ray, 11/19/2016, for shortness of breath shows localized well- circumscribed density in the left major fissure consistent with localized fluid, not present on prior study. 2. CTA of the chest, 11/19/2016, for chest pain shows no CTA evidence of pulmonary embolus. Small nonspecific loculated pleural effusion along the left major fissure. Calcified pleural plaque, posterior left lung base, most consistent with chronic sequelae of remote asbestos exposure. Status post prior CABG with no cardiomegaly or acute congestive heart failure pattern. 3. PA and lateral chest x-ray, 11/23/2016, shows no acute cardiopulmonary disease. Stable pseudotumor with fluid in the left major fissure as seen on CT chest 11/19/2016. Stable CABG. Stable linear fibrosis at the left lateral chest wall. Stable global osteopenia unchanged. PROCEDURES: GHANSHYAM with cardioversion on 11/22/[address] Yariel Corado. Discharge Summary [facility] [id number] [place]. [address] NAME: RENETTA RODRIGUES : 45 STATUS : DIS IN PAT#: [id number] AGE: 71 ADM/REG DATE : 11/19/16 MR#: [id number] REPORT SERV DATE: 11/25/16 DICTATED BY: DATE: REPORT STATUS : Draft TRANSCRIBED BY: MODL DATE: 11/24/16 PERTINENT LABORATORIES: Basic metabolic panel and electrolytes this admission were normal. Albumin 3.0. Troponin times multiple was normal. TSH 1.82. Free T4 of 1.19. BNP 52. Lactate 1.8. White blood cell count is normal with the exception of 11/22/2016, one value was 11. 7.3 at discharge. Hemoglobin 10.6 to 12.1. Platelets 250 to 270. Discharge INR 2.2. Strep pneumococcal antigen negative. Legionella antigen negative. Urinalysis normal. Blood cultures x2 negative. Stool culture with moderate growth of presumptive Pseudomonas and Staph aureus. No Shiga toxin. No Giardia. No Cryptosporidium. C diff PCR negative. BRIEF HISTORY: For full details, please see the previously dictated history of present illness by Dr. Cristóbal Galeas. Briefly, this is a 71-year-old white male with history of Crohn disease, who was admitted in 09/2016 with a Crohn's exacerbation, discharged home on a prolonged steroid taper, and Imuran was held at that time. He had completed his last dose of prednisone the day prior to admission. In the few days prior to that, he had developed some low-grade fevers between 99 and 100 degrees with associated shortness of breath, exertional intolerance. He had no cough or sputum production. He was seen at [facility] [place] and had labs and a chest x-ray, which reportedly showed bilateral lower lobe pneumonia and he was started on cefdinir twice a day. Despite compliance with his antibiotic therapy, he continued to have low-grade fevers between 99 and 100 degrees Fahrenheit. He came to the emergency department for re- evaluation and was found to have a chest x-ray with a left middle lobe loculated pleural effusion. CTA of the chest was negative for pulmonary embolism, but did show a small left lower lobe pleural effusion, but no other active consolidation or infiltrate. White blood cell count was normal. The patient was also noted to be in atrial fibrillation with rapid ventricular response and heart rates in the 140s. He was admitted to the Hospitalist Service for further management. HOSPITAL COURSE: The patient was initiated on a Cardizem drip as well as a heparin drip and seen by his jewel sawyer who uptitrated his diltiazem. There is err in the H and P dictated that the patient had stopped his diltiazem because actually he had continued it the entire time. His home dose of diltiazem was uptitrated with some improvement in his heart rate, but persistence of atrial fibrillation. His rates remained in the low 100s. His Coumadin was continued, and heparin was continued awaiting a therapeutic INR. Cardiology eventually recommended GHANSHYAM with cardioversion and this occurred on 11/22/2016. The cardioversion was successful and patient was discharged in a normal sinus rhythm with rates less than 100 with exertion, and a therapeutic INR of 2.2. Regarding the small loculated effusion in the left major fissure -- the etiology of this is unclear. The patient was recently treated for community-acquired pneumonia with cefdinir, but had progressive symptoms despite this. Initially, he was managed with vancomycin and Zosyn for possible healthcare-acquired pneumonia, but he never had any leukocytosis and his procalcitonin was negative. He also did not produce a sputum sample for culture, so after three days of this was changed to oral Augmentin at the recommendation of Pulmonary. Dr. Rivera recommended outpatient CT scan without contrast in four to six weeks and for patient to be followed up by Dr. Betty Bonner. If the effusion does not respond and resolve after Discharge Summary [address] [place]. [address] NAME: RENETTA RODRIGUES : 45 STATUS : DIS IN PAT#: [id number] AGE: 71 ADM/REG DATE : 11/19/16 MR#: [id number] REPORT SERV DATE: 11/25/16 DICTATED BY: DATE: REPORT STATUS : Draft TRANSCRIBED BY: MODL DATE: 11/24/16 antibiotics, additional procedures may need to be pursued. The patient does have past history of asbestos exposure and was quite concerned that this could be related to that. Though a cortisol level was never obtained, the patient was felt to have some symptoms suggestive of relative adrenal insufficiency such as low-grade fevers, lethargy, weakness, following his recently prolonged steroid taper course. He was started back on Solu-Medrol in the hospital by Pulmonology and then changed over to oral prednisone. Plan will be for a more prolonged prednisone taper this time. On the first day of admission, the patient had some loose stools, which responded as soon as he was placed back on his home probiotic. C. diff PCR was negative. Stool did not show many white blood cells, but subsequent culture grew Pseudomonas and Staph aureus. It is unclear if this is actually of any clinical significance, as the patient did not have any loose stools or diarrhea, nor abdominal pain, during the rest of hospitalization. He still has not followed up with his GI, Dr. Chandler Beard, following his last hospitalization for Crohn's flare and will need to follow up regarding his immune suppressing medications, and possible treatment of Pseudomonas in the stool. While the patient was on higher doses of IV steroids, he did have hyperglycemia, which was managed with increased in insulins. As his steroids were tapered to oral, his blood sugars were well controlled on his home regimen of insulins. His other medical issues, chronic, and outlined above, were stable during this admission. On a higher dose of diltiazem, the patient did demonstrate some downtrend in his systolic blood pressure, and thus Cardiology recommended holding his lisinopril at discharge and to revisit this outpatient. DISCHARGE DISPOSITION: The patient is discharged home in the care of his supportive with no specific activity restrictions. He should continue to adhere to a cardiac diabetic diet for prior comorbid conditions. He has no specific activity restrictions at discharge and did not require any supplemental oxygen for discharge. He has multiple followup appointments pending. He will need to follow up next week at [facility] to obtain PT/INR, with results sent to the [facility] for any necessary Coumadin adjustment. He needs to follow up with Cardiology, Dr. Tse, within two to three weeks. He needs to follow up for a CT scan without contrast of the chest in four to six weeks and then to see Dr. José Antonio Jay or Dr. Betty Bonner thereafter regarding the left major fissure loculation. He also needs to call his primary care provider within one to two weeks to schedule a hospital followup appointment. He should follow up with Dr. Chandler Beard within the next month, regarding Crohn's disease and Pseudomonas in the stool. DISCHARGE MEDICATIONS: Include: 1. Allopurinol 150 mg p.o. daily. 2. Augmentin 875/125 mg p.o. twice a day for 4 days -- to complete a seven-day antibiotic treatment course. 3. Lipitor 20 mg p.o. at bedtime. 4. Imuran 100 mg p.o. daily. 5. Pepcid 20 mg p.o. daily. 6. Lantus 28 units subcutaneous at bedtime. 7. NovoLog subcutaneous q.a.c. and at bedtime -- sliding scale. Discharge Summary [address] [address] NAME: RENETTA RODRIGUES : 45 STATUS : DIS IN PAT#: [id number] AGE: 71 ADM/REG DATE : 11/19/16 MR#: [id number] REPORT SERV DATE: 11/25/16 DICTATED BY: DATE: REPORT STATUS : Draft TRANSCRIBED BY: MODStephania DATE: 11/24/16 8. Zyrtec 10 mg p.o. daily. 9. Pentasa 1000 mg p.o. four times a day. 10.Robaxin 750 mg p.o. three times a day. 11.Carafate 1 g p.o. q.a.c. t.i.d. and at bedtime. 12.Coumadin 5.5 mg p.o. every evening. 13.ProAir HFA two puffs inhaled twice a day as needed for shortness of breath. 14.Advair 250/50 one puff inhaled twice a day. 15.Albuterol 1 neb inhaled three times a day as needed. 16.Klonopin 1 mg p.o. at bedtime p.r.n. insomnia. 17.Spiriva one cap inhaled daily. 18.Prednisone 30 mg p.o. daily for two weeks, then 20 mg p.o. daily for two weeks -- then to be re-evaluated by Pulmonary or primary care doctor. Remaining recommended taper was to take 5 mg p.o. daily for two weeks and then to discontinue. 19.Cardizem CD 240 mg p.o. daily. TIME SPENT: Thirty five minutes were spent in completion of the discharge. STEPHANIE/MARION Med Boss M.D. / [id number] CC: Caterina Casillas M.D. Vijaykurmar Patel, M.D. Brian Negus, M.D. Hisham F. Qutob, MD
--- NOTE | ~2016-11-19 | HP ---
History And Physical [facility] [id number] [facility] [place]. [address] NAME: RENETTA LARSON : 45 STATUS : ADM IN PAT#: [id number] AGE: 71 ADM/REG DATE : 11/19/16 MR#: [id number] REPORT SERV DATE: 11/20/16 DICTATED BY: SHELIA NUNN DATE: 11/19/16 REPORT STATUS : Draft TRANSCRIBED BY: MODL DATE: 11/19/16 DATE OF ADMISSION: 11/19/2016 POINT OF ENTRY: [facility] Emergency Department. PRIMARY [address] VENDOR: Neto Tse M.D. PRIMARY FILAMENT WELDER: José Antonio Jay M.D. PRIMARY CARBON CAPTURE POWER PLANT ENGINEER: Porsche Beard M.D. CHIEF COMPLAINT: Shortness of breath, and low-grade fevers. HISTORY OF PRESENT ILLNESS: Mr. Larosn is a 71-year-old gentleman with history of Crohn disease, currently on Imuran therapy, as well as COPD, not on home oxygen, obstructive sleep apnea, insulin-dependent diabetes mellitus type 2, and atrial fibrillation on Coumadin, who presents to the emergency department today with reports of low-grade fevers, and shortness of breath. The patient was recently admitted to the Hospitalist Service in late September to early October for a partial small bowel obstruction. He also was felt to have a Crohn's exacerbation at that time. He was reportedly discharged on a prolonged prednisone taper and the patient states that his actual last dose of prednisone was taken yesterday. The patient states that he was either told to discontinue his diltiazem or not instructed on whether or not to continue his diltiazem, and as such he has not been taking his diltiazem since discharge from our hospital. The patient states beginning around 11/13/2016, he started to develop some low-grade fevers around 99 to 100 degrees Fahrenheit with associated shortness of breath, but denies any cough, sputum production, or chest pain. The patient was seen at [facility] in [place], had labs and chest x-ray that reportedly showed bilateral lower lobe pneumonia, was started on cefdinir b.i.d. The patient reports compliance with his antibiotic therapy, but has continued to have low-grade fevers of 99 to 100 degrees Fahrenheit as well as continued shortness of breath, but again denies any productive cough or sputum production. Initial evaluation in the emergency department notable for a chest x-ray that shows a left lower lobe pleural effusion. CT of the chest was negative for PE, but again shows a small left lower lobe pleural effusion, but no evidence of any active consolidation or infiltrate. Labs are otherwise unremarkable. White count is normal. BNP is 52. However, the patient is noted to be in atrial fibrillation with RVR with heart rates in the 140s. The patient was started on diltiazem drip as well as a heparin drip, and admitted to the Hospitalist Service. REVIEW OF SYSTEMS: Comprehensive review of systems otherwise negative unless listed in history of present illness. History And Physical [address] [address] NAME: RENETTA LARSON : 45 STATUS : ADM IN [facility]#: [id number] AGE: 71 ADM/REG DATE : 11/19/16 MR#: [id number] REPORT SERV DATE: 11/20/16 DICTATED BY: SHELIA NUNN DATE: 11/19/16 REPORT STATUS : Draft TRANSCRIBED BY: MARION DATE: 11/19/16 PAST MEDICAL HISTORY: 1. Coronary artery disease with prior coronary artery bypass grafting. 2. Atrial fibrillation, on Coumadin. 3. COPD, not on home oxygen. 4. Insulin-dependent diabetes mellitus type 2. 5. Crohn disease, currently on Imuran and mesalamine. 6. Obstructive sleep apnea, on CPAP therapy. 7. Hypertension. 8. Hyperlipidemia. 9. BPH. 10.History of cerebrovascular accident. 11.Gastroesophageal reflux disease. 12.History of asbestosis. PAST SURGICAL HISTORY: 1. CABG. 2. Cholecystectomy. 3. Appendectomy. 4. Umbilical hernia repair. 5. Bilateral shoulder repair. ALLERGIES: TO MORPHINE AND ADHESIVE TAPE. HOME MEDICATIONS: 1. ProAir two puffs inhalation b.i.d. 2. Albuterol sulfate one nebulization t.i.d. 3. Allopurinol 150 mg daily. 4. Atorvastatin 20 mg q.h.s. 5. Azathioprine 100 mg daily. 6. Omnicef 300 mg b.i.d. 7. Zyrtec 10 mg daily. 8. Klonopin 1 mg q.h.s. p.r.n. 9. Bentyl 20 mg q.i.d. 10.Pepcid 20 mg daily. 11.Advair one puff inhalation b.i.d. 12.NovoLog sliding scale. 13.Lantus 20 units q.h.s. 14.Lisinopril 20 mg b.i.d. 15.Mesalamine 100 mg q.i.d. 16.Robaxin 750 mg t.i.d. 17.Carafate 1 g a.c. and h.s. 18.Spiriva one cap inhalation daily. 19.Coumadin 5.5 mg daily. SOCIAL HISTORY: Denies any tobacco, alcohol, or illicits. He is a former smoker. 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 History And Physical [address] [address] NAME: RENETTA LARSON : 45 STATUS : ADM IN PAT#: [id number] AGE: 71 ADM/REG DATE : 11/19/16 MR#: [id number] REPORT SERV DATE: 11/20/16 DICTATED BY: SHELIA NUNN DATE: 11/19/16 REPORT STATUS : Draft TRANSCRIBED BY: MARION DATE: 11/19/16 FAMILY MEDICAL HISTORY: Notable for coronary artery disease in his father. LABS AND IMAGIN. White count 7.2, hemoglobin 12.1, hematocrit 36.0, and platelet count 256. INR is 1.3. 2. Sodium is 135, potassium 4.1, chloride 99, carbon dioxide 31, BUN 16, creatinine 0.94, glucose is 107, calcium is 8.8, and magnesium 1.7. 3. Troponin less than 0.02. BNP is 52. 4. Chest x-ray per my review shows left lower lobe pleural effusion. 5. CTA of the chest was negative for PE or evidence of pneumonia, but does have a small left-sided loculated pleural effusion. 6. EKG per my review shows atrial fibrillation with RVR with heart rates in the 140s. No evidence of any acute ischemia or infarction. PHYSICAL EXAMINATION: VITAL SIGNS: Temperature is 9.6 degrees Fahrenheit, pulse is 104, respirations 18, saturating 95% on room air, and blood pressure 166/73, on recheck blood pressure is now 121/63, and 95% on room air. Heart rates were variable in the 1 teens, diltiazem drip. GENERAL: The patient is awake and alert, in no acute distress. Resting comfortably in bed. He is a well-developed, well-nourished, elderly male. is at bedside. HEENT: Atraumatic and normocephalic. Moist mucous membranes. Pupils are equal, round, reactive to light and accommodation. Extraocular eye movements intact. No scleral icterus. NECK: No jugular venous distention. No carotid bruits. CARDIAC: Irregularly irregular rate and rhythm. No murmurs or gallops. Normal S1, S2. LUNGS: Mild decreased breath sounds in the base of left lower lobe, otherwise no wheezes, rhonchi, or crackles appreciated. ABDOMEN: Obese, soft, nontender, and nondistended. Good bowel sounds. No rebound, guarding, or rigidity. EXTREMITIES: Warm and perfused. No cyanosis, clubbing, or edema. SKIN: Warm and dry. PSYCH: Affect appropriate. NEURO: Alert and oriented x3. Cranial nerves 2 through 12 grossly intact. Speech is normal. Gait not assessed. ASSESSMENT AND PLAN: Mr. Larson is a 71-year-old gentleman, who presents with low-grade fevers, shortness of breath, and found to have evidence of atrial fibrillation with rapid ventricular response as well as likely left-sided pleural effusion. PROBLEM LIST: 1. Atrial fibrillation with rapid ventricular response. 2. Left-sided loculated pleural effusion. 3. History of recent pneumonia. 4. Subtherapeutic INR. 5. History of Crohn disease, on immunosuppressive therapy. 6. Insulin-dependent diabetes mellitus type 2. PLAN: History And Physical [address] [address] NAME: RENETTA LARSON : 45 STATUS : ADM IN PAT#: [id number] AGE: 71 ADM/REG DATE : 11/19/16 MR#: [id number] REPORT SERV DATE: 11/20/16 DICTATED BY: SHELIA NUNN DATE: 11/19/16 REPORT STATUS : Draft TRANSCRIBED BY: MODStephania DATE: 11/19/16 1. AFib with RVR. I suspect the patient's AFib with RVR is due to the fact he has not been taking his diltiazem for the past two months now, as well as underlying infectious troubles. We will place him on a diltiazem infusion per protocol. We will consult the patient's primary fish processor, Dr. Tse, for assistance with placing him back on a rate control agent. 2. Left-sided loculated pleural effusion. CT as well as chest x-ray unremarkable for any evidence of ongoing pneumonia, but does show a small left-sided loculated pleural effusion. Given his lack of fevers as well as lack of white count unclear as well as small size unclear as to if this needs to be intervened on. We will consult Pulmonology for assistance. Continue antibiotics. 3. History of pneumonia. The patient is currently on approximately day #5 of treatment for recent diagnosis of pneumonia at [facility]. We will continue IV antibiotics for community-acquired pneumonia. Despite the fact he is afebrile with no white count as he is on immunosuppressive therapy of Imuran as well as a recent prolonged prednisone taper, blood cultures were obtained. We will try to obtain sputum culture as well as checking urinary antigens. 4. Subtherapeutic INR. The patient has elevated CHADS2 Vasc score of greater than 5, so given his subtherapeutic INR we will place him on a heparin drip. Hold his Coumadin given the possible need for either chest tube placement or thoracoscopy for his likely pleural effusion. 5. Deep venous thrombosis prophylaxis. Continue the patient on a heparin drip started in the ER. CODE STATUS: The patient wished to be full code. JCB/MODL Shelia Nunn MD / [id number] CC: Caterina Ordonez M.D. Hisham F. Qutob, MD Brian Negus, M.D. Vijaykurmar Patel, M.D.
--- NOTE | ~2016-11-19 | CN ---
Consultation Report [facility] [address] [place]. [address] NAME: RENETTA LARSON : 45 STATUS : ADM IN PAT#: [id number] AGE: 71 ADM/REG DATE : 11/19/16 MR#: [id number] REPORT SERV DATE: 11/20/16 DICTATED BY: MADIHA DO DATE: 11/20/16 REPORT STATUS : Draft TRANSCRIBED BY: MODStephania DATE: 11/20/16 DATE OF CONSULTATION: Dear Dr. Galeas and Dr. Brice: Thank you for requesting my opinion regarding evaluation and management of Mr. Renetta Larson's left-sided pseudotumor and shortness of breath. Mr. Larson is an extremely pleasant 71-year-old gentleman with a significant past medical history of Crohn's disease, on azathioprine; COPD; obstructive sleep apnea, compliant with CPAP; type 2 diabetes and atrial fibrillation, on Coumadin, who presents with a several-day history of worsening shortness of breath, dyspnea on exertion, and low-grade fevers. The patient details that his symptoms began on 11/13/2016 with low-grade fevers of 99 to 100, increasing shortness of breath and sputum production. The patient went to [facility] in [place] and had a chest x-ray with a nonfunctioning disk that as per the patient revealed bilateral lower lobe pneumonia and was prescribed cefdinir. The patient reports compliance with the antibiotics, but his symptoms persisted and he reached out to the Pulmonary Office and was redirected to the [facility]. In the ER, the patient was found to have a normal white count, but was noted to have atrial fibrillation with RVR with heart rate in the 140s. The patient was started on diltiazem drip, and he states that he is not any better and continues to have shortness of breath, chest tightness and dyspnea, especially on exertion. He characterizes his symptoms as moderate in nature, well localized to the chest, nonradiating with no significant exacerbating factors. REVIEW OF SYSTEMS: A detailed 14-point review of systems was completed. Pertinent positives and negatives are listed above. PAST MEDICAL HISTORY: 1. Coronary artery disease with prior history of coronary artery bypass graft surgery. 2. Atrial fibrillation, on Coumadin. 3. COPD, not on home oxygen. 4. Insulin-dependent diabetes type 2. 5. Crohn's disease, currently on azathioprine and mesalamine. The patient just finished a prolonged course of prednisone therapy. 6. Obstructive sleep apnea, on CPAP. 7. Hypertension. 8. Hyperlipidemia. 9. BPH. 10.Cerebrovascular accident. 11.Gastroesophageal reflux disease. 12.History of asbestos exposure. PAST SURGICAL HISTORY: 1. CABG. 2. Cholecystectomy. Consultation Report [address] [place]. [address] NAME: RENETTA LARSON : 45 STATUS : ADM IN PAT#: [id number] AGE: 71 ADM/REG DATE : 11/19/16 MR#: [id number] REPORT SERV DATE: 11/20/16 DICTATED BY: MADIHA DO DATE: 11/20/16 REPORT STATUS : Draft TRANSCRIBED BY: MARION DATE: 11/20/16 3. Appendectomy. 4. Umbilical hernia repair. 5. Bilateral shoulder repair. ALLERGIES: TO MORPHINE AND ADHESIVES. HOME MEDICATIONS: Reviewed and located in the paper chart. SOCIAL HISTORY: The patient is a heavy prior smoker, but quit, and he also worked for the [employer] and had previous asbestos exposure. There is no history of alcohol or illicit drug abuse. His of 52 years is by his bedside. FAMILY HISTORY: Coronary artery disease. PHYSICAL EXAMINATION: VITAL SIGNS: Afebrile, T-current of 99, pulse of 105, respiratory rate of 20, 97%, BP of 123/69. 5 feet 7 inches, 237 pounds, BMI of 37. GENERAL: A morbidly obese white male, chronically ill appearing. HEENT: Normocephalic and atraumatic. Pupils are equal, round, and reactive to light and accommodation. Posterior oropharynx is crowded, but clear. No exudates. NECK: Thick neck. CARDIOVASCULAR: Regular rate and rhythm. S1 and S2 present. LUNGS: Coarse bilateral breath sounds with wheezes, prolonged expiratory phase. ABDOMEN. Protuberant, nontender, nondistended. Large pannus. EXTREMITIES: No clubbing, cyanosis, or edema. SKIN: No new rashes, lesions, or ulcers. PSYCHIATRIC: Alert and oriented x3. Appropriate mood and affect. Appropriate insight and judgment. NEUROLOGIC: 5/5 strength in upper and lower extremities. Cranial nerves 2 through 12 intact. Gait not tested. DTRs not performed. LABORATORY DATA: White count of 6, hemoglobin of 11, platelet count of 255. Procalcitonin of 0.12. Creatinine of 0.95. Negative urine Legionella. IMAGING: Chest CT on 11/19/2016 was personally reviewed by me. 1. No evidence of a pulmonary embolism. 2. Small nonspecific loculated pleural effusion in the left major fissure. 3. Calcified pleural plaque in the left base, most consistent with chronic sequela of remote asbestos exposure. 4. Status post CABG. No evidence of CHF. The CT scan was personally reviewed by me and I agree with the above interpretation. ASSESSMENT AND PLAN: Mr. Renetta Larson is an extremely pleasant 71-year-old gentleman with a significant past medical history of COPD and Crohn's disease, on chronic immunosuppressive therapy with azathioprine and mesalamine and status post a prolonged course of prednisone Consultation Report [address] [place]. [address] NAME: RENETTA LARSON : 45 STATUS : ADM IN PAT#: [id number] AGE: 71 ADM/REG DATE : 11/19/16 MR#: [id number] REPORT SERV DATE: 11/20/16 DICTATED BY: MADIHA DO DATE: 11/20/16 REPORT STATUS : Draft TRANSCRIBED BY: MARION DATE: 11/20/16 over the past month, who presents to [facility] with worsening shortness of breath and dyspnea on exertion. As per the patient's family, the patient was seen at [facility] and was diagnosed with bilateral pneumonia and was started on cefdinir. The patient's symptoms did not significantly improve, prompting his admission to [facility]. The patient's CT scan, however, did not demonstrate a pneumonic process. However, there was a small loculated pseudotumor or pleural effusion within the left major fissure. With regard to whether this is community-acquired pneumonia, it is difficult to ascertain based on the CT scan with no evidence of a prior infiltrate. However, the pseudotumor is concerning for possible pleural penetration and failure of outpatient antibiotic therapy. At this point, the clinical and radiographic presentation is most consistent with multifactorial shortness of breath due to the followin. Possible HCAP or atypical organism failing outpatient antibiotic therapy with small loculated pleural effusion. Recommend changing antibiotic coverage to include vanc and Zosyn with pharmacy to dose. 2. With regard to his acute exacerbation of COPD and recently completing a prolonged prednisone taper, the patient may have an element of relative adrenal insufficiency. Start Solu-Medrol and bronchodilators including DuoNeb, Brovana, and Pulmicort. 3. Asbestos plaques, likely related to prior asbestos exposure. 4. CT scan needs to be followed to resolution, and the patient will require outpatient followup. 5. With regard to the loculated pleural effusion, I do not recommend drainage or surgical intervention at this time. I recommend observation at this is in the left major fissure and may resolve with appropriate therapy. 6. Further recommendations to follow pending his clinical response. Thank you for allowing me to participate in Mr. Larson's care. AIMEE/MARION Madiha Do M.D. / [id number] CC: Caterina Casillas M.D.
--- NOTE | ~2016-11-19 | OP ---
Record Of Operation [facility] [address] [place]. [address] NAME: RENETTA RODRIGUES : 45 STATUS : DIS IN PAT#: [id number] AGE: 71 ADM/REG DATE : 11/19/16 MR#: [id number] REPORT SERV DATE: 11/25/16 DICTATED BY: YARIEL REZA DATE: 11/22/16 REPORT STATUS : Draft TRANSCRIBED BY: MODL DATE: 11/22/16 DATE OF PROCEDURE: 11/22/2016 This is a transesophageal echocardiogram and cardioversion requested by Dr. Neto Tse. INDICATION: Atrial fibrillation. HISTORY OF PRESENT ILLNESS: The patient is hospitalized with pulmonary issues and is noted to be in atrial fibrillation. He is starting Coumadin and currently is therapeutic on an IV heparin drip. After informed consent, the patient was sedated with propofol by the anesthesia department. The transesophageal probe was placed on the first attempt. There were no immediate complications. A single defibrillation was delivered. TRANSESOPHAGEAL ECHOCARDIOGRAM: 2D: 1. The aortic valve is trileaflet and opens adequately. There is mild focal calcification of the aortic valve. 2. The ascending aorta is normal in size. 3. There is no evidence of left atrial appendage thrombus. 4. Left ventricular size and systolic function appeared normal. 5. The mitral valve is structurally normal. 6. The left atrium is jwjb-sn-rjoctqfpil enlarged. 7. Right-sided chambers are normal in size. 8. The tricuspid valve is structurally normal. 9. There is no evidence of pericardial effusion. DOPPLER: Pulse wave Doppler in the left atrial appendage is less than 40 cm/second. COLOR FLOW: 1. There is trace aortic regurgitation. 2. There is welr-xz-xzsooxfy mitral regurgitation. 3. There is mild tricuspid regurgitation. CARDIOVERSION: A single synchronized 200-joule biphasic defibrillation was delivered. Atrial fibrillation converted to normal sinus rhythm. IMPRESSION: 1. No evidence of left atrial appendage thrombus. 2. Normal left ventricular size and systolic function. 3. Vcqf-ze-ybqbyubd mitral regurgitation with at least mild left atrial enlargement. 4. Successful cardioversion to normal sinus rhythm. YASMIN/MARION Yariel Record Of Operation [facility] [address] [place]. [address] NAME: RENETTA RODRIGUES : 45 STATUS : DIS IN PAT#: [id number] AGE: 71 ADM/REG DATE : 11/19/16 MR#: [id number] REPORT SERV DATE: 11/25/16 DICTATED BY: YARIEL REZA DATE: 11/22/16 REPORT STATUS : Draft TRANSCRIBED BY: MODL DATE: 11/22/16 Caterina Reza / [id number] CC: Med Boss M.D.
[~2016-11-19 17:59] MED LIST changes: +ALBUTEROL0.083 % INH; +CENTRUM PO; +COUMADIN3 MG; +FLAG500TAB PO; +FLONASE NAS; +HUMALOGPEN SC; +IMOD PO; +LANTUSCART SC; +LEVAQUIN5T PO; +NITROQUICK0.4 MG SL; +P20 PO; +REFRESH OPH
[2016-11-19 18:51] LABS: BASOPHILS 0.3 %; BASOPHILS ABSOLUTE 0.02 10/3/uL (0.0-0.16); EOSINOPHILS 2.9 %; EOSINOPHILS ABSOLUTE 0.21 10/3/uL (0.0-0.53); ER CBC TAT 0 Hrs 05 Mins; HEMOGLOBIN 12.1 g/dL (13.6-17.8); IMMATURE GRANULOCYTES 3.7 %; IMMATURE GRANULOCYTES ABSOLUTE 0.27 10/3/uL (0.0-0.11); LYMPHOCYTES ABSOLUTE 0.72 10/3/uL (0.67-4.30); MEAN CORPUSCULAR HEMOGLOB 34.4 pg (26.0-34.0); MEAN PLATELET VOLUME 10.3 fL (9.2-13.0); MONOCYTES 11.2 %; MONOCYTES ABSOLUTE 0.81 10/3/uL (0.21-1.20); NEUTROPHILS 71.9 %; NEUTROPHILS ABSOLUTE 5.19 10/3/uL (2.02-8.40); RED CELL COUNT 3.52 10/6/uL (4.7-6.1); WHITE BLOOD CELLS 7.2 10/3/uL (4.5-10.5)
[2016-11-19 18:52] LABS: MANUAL DIFF NO %; MEAN CORPUS HGB CONC 33.6 g/dL (32.0-36.0); MEAN CORPUSCULAR VOLUME 102.3 fL (80-100); PLATELET COUNT 256 10/3/uL (150-400); RBC DISTRIBUTION WIDTH 21.7 % (12.0-16.0)
[2016-11-19 18:58] LABS: INTERNATIONAL NORMAL RATI 1.3 UNITS (-); PARTIAL THROMBO TIME 32.2 SEC (22.5-37.2); PROTIME (NOT ORD) 16.2 SEC (12.0-14.5)
[2016-11-19 19:07] LABS: BUN (BLOOD UREA NITROGEN) 16 MG/DL (6-23); CALCIUM, SERUM 8.9 MG/DL (8.5-10.4); CHEST PAIN PROFILE TAT 0 Hrs 21 Mins; CHLORIDE, SERUM 99 MMOL/L (96-112); CREATININE 0.94 MG/DL (0.70-1.30); GFR AFRICAN AMERICAN 94 ML/MIN (>=60); GFR NON AFRICAN AMERICAN 81 ML/MIN (>=60); POTASSIUM, SERUM 4.1 MMOL/L (3.5-5.3); SODIUM, SERUM 135 MMOL/L (135-148); TROPONIN I <0.02 NG/ML (<0.05)
[2016-11-19 19:08] LABS: CO2 (CARBON DIOXIDE) 31 MMOL/L (24-34); GLUCOSE, SERUM 107 MG/DL (60-99)
[2016-11-19] MEDS ORDERED: LIPITOR20 PO (22:16)
[2016-11-19] MEDS ORDERED: KLONO1 PO (22:16)
[2016-11-19] MEDS ORDERED: PRIN20 PO (22:17)
[2016-11-19] MEDS ORDERED: METHOC750B PO (22:17)
[2016-11-19] MEDS ORDERED: PROAIR HFA INH (22:18)
[2016-11-19] MEDS ORDERED: ZYRTEC ALLGY10 MG PO (22:18)
[2016-11-19] MEDS ORDERED: SPIRIVA INH (22:18)
[2016-11-19] MEDS ORDERED: Z100 PO (22:18)
[2016-11-19] MEDS ORDERED: ADVAIR250 INH (22:19)
[2016-11-19] MEDS ORDERED: SUCR PO (22:19)
[2016-11-19] MEDS ORDERED: PENTASA500 MG PO (22:19)
[2016-11-19] MEDS ORDERED: LANTUS SC (22:19)
[2016-11-19] MEDS ORDERED: NOVOLOG SC (22:20)
[2016-11-19] MEDS ORDERED: ALBUTEROL0.083 % INH (22:21)
[2016-11-19] MEDS ORDERED: BENTYL20 PO (22:21)
[2016-11-19] MEDS ORDERED: IMU PO (22:21)
[2016-11-19] MEDS ORDERED: PEP20 PO (22:21)
[2016-11-19] MEDS ORDERED: OMNICEF300 PO (22:22)
[2016-11-20 04:45] LABS: BASOPHILS 0.5 %; BASOPHILS ABSOLUTE 0.03 10/3/uL (0.0-0.16); EOSINOPHILS 4.1 %; EOSINOPHILS ABSOLUTE 0.25 10/3/uL (0.0-0.53); HEMATOCRIT 33.3 % (40.0-51.0); HEMOGLOBIN 11.2 g/dL (13.6-17.8); IMMATURE GRANULOCYTES 4.5 %; IMMATURE GRANULOCYTES ABSOLUTE 0.27 10/3/uL (0.0-0.11); LYMPHOCYTES 11.9 %; LYMPHOCYTES ABSOLUTE 0.72 10/3/uL (0.67-4.30); MEAN CORPUS HGB CONC 33.6 g/dL (32.0-36.0); MEAN CORPUSCULAR HEMOGLOB 34.6 pg (26.0-34.0); MEAN CORPUSCULAR VOLUME 102.8 fL (80-100); MEAN PLATELET VOLUME 9.8 fL (9.2-13.0); MONOCYTES 10.2 %; MONOCYTES ABSOLUTE 0.62 10/3/uL (0.21-1.20); NEUTROPHILS 68.8 %; NEUTROPHILS ABSOLUTE 4.17 10/3/uL (2.02-8.40); PLATELET COUNT 255 10/3/uL (150-400); RBC DISTRIBUTION WIDTH 21.8 % (12.0-16.0); RED CELL COUNT 3.24 10/6/uL (4.7-6.1); WHITE BLOOD CELLS 6.1 10/3/uL (4.5-10.5)
[2016-11-20 04:47] LABS: MANUAL DIFF NO %
[2016-11-20 04:48] LABS: INTERNATIONAL NORMAL RATI 1.4 UNITS (-); PROTIME (NOT ORD) 16.9 SEC (12.0-14.5)
[2016-11-20 05:11] LABS: BUN (BLOOD UREA NITROGEN) 14 MG/DL (6-23); CALCIUM, SERUM 8.4 MG/DL (8.5-10.4); CHLORIDE, SERUM 102 MMOL/L (96-112); CO2 (CARBON DIOXIDE) 30 MMOL/L (24-34); CREATININE 0.95 MG/DL (0.70-1.30); FREE T4 1.19 NG/DL (0.76-1.46); GFR AFRICAN AMERICAN 93 ML/MIN (>=60); GFR NON AFRICAN AMERICAN 80 ML/MIN (>=60); POTASSIUM, SERUM 4.1 MMOL/L (3.5-5.3); SODIUM, SERUM 140 MMOL/L (135-148)
[2016-11-20 05:12] LABS: GLUCOSE, SERUM 148 MG/DL (60-99)
[2016-11-20 06:11] LABS: PROCALCITONIN 0.12 ng/mL (<0.5)
[2016-11-20 06:52] LABS: ASCORBIC ACID (UR NOT ORDER) NEG (NEG); BILIRUBIN, URINE NEGATIVE (NEG); KETONE, URINE NEGATIVE (NEG); LEUKOCYTE ESTERASE(NOT OR NEG (NEG); WBC (NOT ORDERED) (RFLEX) < 1 (0-5)
[2016-11-20] MEDS ORDERED: CARDCD240 PO (17:38)
[2016-11-21 04:29] LABS: BASOPHILS 0 %; EOSINOPHILS 0 %; HEMOGLOBIN 10.6 g/dL (13.6-17.8); IMMATURE GRANULOCYTES 1.5 %; IMMATURE GRANULOCYTES ABSOLUTE 0.07 10/3/uL (0.0-0.11); LYMPHOCYTES ABSOLUTE 0.32 10/3/uL (0.67-4.30); MEAN CORPUS HGB CONC 34.2 g/dL (32.0-36.0); MEAN CORPUSCULAR HEMOGLOB 34.5 pg (26.0-34.0); MEAN PLATELET VOLUME 10.4 fL (9.2-13.0); MONOCYTES 5.2 %; MONOCYTES ABSOLUTE 0.24 10/3/uL (0.21-1.20); NEUTROPHILS 86.3 %; NEUTROPHILS ABSOLUTE 3.96 10/3/uL (2.02-8.40); PLATELET COUNT 232 10/3/uL (150-400); RBC DISTRIBUTION WIDTH 21.1 % (12.0-16.0); RED CELL COUNT 3.07 10/6/uL (4.7-6.1); WHITE BLOOD CELLS 4.6 10/3/uL (4.5-10.5)
[2016-11-21 04:32] LABS: MANUAL DIFF NO %
[2016-11-21 04:34] LABS: INTERNATIONAL NORMAL RATI 1.4 UNITS (-); PROTIME (NOT ORD) 16.8 SEC (12.0-14.5)
[2016-11-21 04:36] LABS: CALCIUM, SERUM 8.5 MG/DL (8.5-10.4); CHLORIDE, SERUM 104 MMOL/L (96-112); CREATININE 1.27 MG/DL (0.70-1.30); GFR AFRICAN AMERICAN 65 ML/MIN (>=60); GFR NON AFRICAN AMERICAN 56 ML/MIN (>=60); PARTIAL THROMBO TIME 91.1 SEC (22.5-37.2); POTASSIUM, SERUM 4.4 MMOL/L (3.5-5.3); SODIUM, SERUM 138 MMOL/L (135-148)
[2016-11-21 04:39] LABS: BUN (BLOOD UREA NITROGEN) 24 MG/DL (6-23); CO2 (CARBON DIOXIDE) 20 MMOL/L (24-34); GLUCOSE, SERUM 259 MG/DL (60-99)
[2016-11-22 05:32] LABS: HEMATOCRIT 30.8 % (40.0-51.0); HEMOGLOBIN 10.6 g/dL (13.6-17.8); MANUAL DIFF YES %; MEAN CORPUS HGB CONC 34.4 g/dL (32.0-36.0); MEAN CORPUSCULAR HEMOGLOB 34.5 pg (26.0-34.0); MEAN CORPUSCULAR VOLUME 100.3 fL (80-100); MEAN PLATELET VOLUME 10.3 fL (9.2-13.0); PLATELET COUNT 271 10/3/uL (150-400); RBC DISTRIBUTION WIDTH 21.3 % (12.0-16.0); RED CELL COUNT 3.07 10/6/uL (4.7-6.1)
[2016-11-22 05:34] LABS: PARTIAL THROMBO TIME 69.6 SEC (22.5-37.2)
[2016-11-22 05:39] LABS: BUN (BLOOD UREA NITROGEN) 29 MG/DL (6-23); CALCIUM, SERUM 8.7 MG/DL (8.5-10.4); CHLORIDE, SERUM 105 MMOL/L (96-112); CO2 (CARBON DIOXIDE) 23 MMOL/L (24-34); CREATININE 1.09 MG/DL (0.70-1.30); GFR AFRICAN AMERICAN 79 ML/MIN (>=60); GFR NON AFRICAN AMERICAN 68 ML/MIN (>=60); GLUCOSE, SERUM 187 MG/DL (60-99); PHOSPHORUS, SERUM 3.3 MG/DL (2.5-4.5); POTASSIUM, SERUM 4.3 MMOL/L (3.5-5.3); SODIUM, SERUM 137 MMOL/L (135-148)
[2016-11-22 06:45] LABS: ANISOCYTOSIS 1+ (5-10/OIF) (0-5/OIF); BAND NEUTROPHILS 2 %; LYMPHOCYTES 3 %; LYMPHOCYTES ABSOLUTE (CALC) 0.33 10/3/uL (0.67-4.30); MACROCYTES 1+ (5-10/OIF) (0-5/OIF); MONOCYTES 6 %; MONOCYTES ABSOLUTE (CALC) 0.66 10/3/uL (0.21-1.20); NEUTROPHILS ABSOLUTE (CALC) 10.01 10/3/uL (2.02-8.40); PLATELET ESTIMATE ADQ (ADEQUATE); SEGMENTED NEUTROPHIL (0) 89 %; TOTAL NUCLEATED CELLS 100
[2016-11-22 07:39] LABS: INTERNATIONAL NORMAL RATI 1.7 UNITS (-)
[2016-11-22 07:40] LABS: PROTIME (NOT ORD) 20.1 SEC (12.0-14.5)
[2016-11-23 03:32] LABS: HEMATOCRIT 31.2 % (40.0-51.0); HEMOGLOBIN 10.6 g/dL (13.6-17.8); MEAN CORPUSCULAR HEMOGLOB 34.8 pg (26.0-34.0); MEAN CORPUSCULAR VOLUME 102.3 fL (80-100); MEAN PLATELET VOLUME 10.2 fL (9.2-13.0); PLATELET COUNT 272 10/3/uL (150-400); RBC DISTRIBUTION WIDTH 21.7 % (12.0-16.0); RED CELL COUNT 3.05 10/6/uL (4.7-6.1); WHITE BLOOD CELLS 7.3 10/3/uL (4.5-10.5)
[2016-11-23 03:36] LABS: MANUAL DIFF YES %
[2016-11-23 04:20] LABS: BAND NEUTROPHILS 4 %; EOSINOPHILS 2 %; EOSINOPHILS ABSOLUTE (CALC) 0.15 10/3/uL (0.0-0.53); IMMATURE GRANS ABSOLUTE (CALC) 0.07 10/3/uL (0.0-0.11); LYMPHOCYTES 6 %; LYMPHOCYTES ABSOLUTE (CALC) 0.44 10/3/uL (0.67-4.30); METAMYELOCYTES 1 %; MONOCYTES 4 %; MONOCYTES ABSOLUTE (CALC) 0.29 10/3/uL (0.21-1.20); NEUTROPHILS ABSOLUTE (CALC) 6.35 10/3/uL (2.02-8.40); PLATELET ESTIMATE ADQ (ADEQUATE); SEGMENTED NEUTROPHIL (0) 83 %; TOTAL NUCLEATED CELLS 100
[2016-11-23 04:21] LABS: MACROCYTES 1+ (5-10/OIF) (0-5/OIF); MICROCYTES 1+ (5-10/OIF) (0-5/OIF); TEARDROP SHAPED RBCS OCC (0-2/OIF)
[2016-11-23 05:29] LABS: INTERNATIONAL NORMAL RATI 2.2 UNITS (-); PROTIME (NOT ORD) 23.8 SEC (12.0-14.5)
[2016-11-23] MEDS ORDERED: AUG875 PO (12:41)
[2016-11-23] MEDS ORDERED: STERAPRED DS10 MG PO (12:42)
[2017-01-07] MEDS ORDERED: CEFT5 PO (15:51)
[2017-01-14] MEDS ORDERED: PEP20 PO (13:14)
[2017-01-14] MEDS ORDERED: PRILO PO (13:16)
[2017-01-14] MEDS ORDERED: IMU PO (13:18)
[2017-01-15] MEDS ORDERED: VENTOLIN HFA INH (02:07)
[2017-01-15] MEDS ORDERED: ADVAIR250 INH (02:07)
[2017-01-15] MEDS ORDERED: SPIRIVA INH (02:07)
[2017-01-15] MEDS ORDERED: FLONASE NAS (02:08)
[2017-01-15] MEDS ORDERED: CORDARONE PO (02:08)
[2017-01-15] MEDS ORDERED: ALBUTEROL0.083 % INH (02:08)
[2017-01-15] MEDS ORDERED: C5 PO (02:09)
[2017-01-15] MEDS ORDERED: CARDCD240 PO (02:09)
[2017-01-15] MEDS ORDERED: SUCR PO (02:09)
[2017-01-15] MEDS ORDERED: IMU PO (02:09)
[2017-01-15] MEDS ORDERED: PEP20 PO (02:09)
[2017-01-15] MEDS ORDERED: ZYRTEC ALLGY10 MG PO (02:10)
[2017-01-15] MEDS ORDERED: PROBIOTIC OTC PO (02:10)
[2017-01-15] MEDS ORDERED: Z100 PO (02:10)
[2017-01-15] MEDS ORDERED: NOVOLOG SC ×2 (02:12)
[2017-01-15] MEDS ORDERED: FOLIC ACID400 MC1 PO (02:13)
[2017-01-15] MEDS ORDERED: CYANO1000T PO (02:13)
[2017-01-15] MEDS ORDERED: KLONO1 PO (02:13)
[2017-01-15] MEDS ORDERED: CENTRUM PO (02:13)
[2017-01-15] MEDS ORDERED: LANTUSCART SC (02:13)
[2017-01-15] MEDS ORDERED: KLONO5 PO (02:14)
[2017-01-15] MEDS ORDERED: LOP25 PO (02:14)
[2017-01-15] MEDS ORDERED: P10 PO (02:15)
[2017-01-15] MEDS ORDERED: VIBRATAB100 MG PO (02:15)
[2017-01-15] MEDS ORDERED: PENTASA500 MG PO (02:16)
[2017-01-15] MEDS ORDERED: CEFT5 PO (02:16)
[2017-01-15] MEDS ORDERED: LIPITOR20 PO (02:17)
[2017-01-15] MEDS ORDERED: NITROSTAT0.4 MG SL (02:18)
[2017-01-20] MEDS ORDERED: FLORASTOR250 MG PO (10:45)
[2017-01-20] MEDS ORDERED: OMNICEF300 PO (10:48)
== END 2016-11-23 15:09 | disposition home or self-care (01) | DRG 309 ==
LOC: ER 17:59 → 5NO 23:11 → SDC/OF 11-22 08:45 → 5NO 11-22 08:49
PROVIDERS: Emergency Medicine; Hospitalist; Nurse Practitioner Family
PROC: 5A2204Z Restoration of Cardiac Rhythm, Single (ICD-10-PCS; principal; 2016-11-22)
PROC: B246ZZ4 Ultrasonography of Right and Left Heart, Transesophageal (ICD-10-PCS; 2016-11-22)
DX: I48.0 Paroxysmal atrial fibrillation (principal); K50.90 Crohn's disease, unspecified, without complications; J90 Pleural effusion, not elsewhere classified; E11.65 Type 2 diabetes mellitus with hyperglycemia; E27.40 Unspecified adrenocortical insufficiency; J44.1 Chronic obstructive pulmonary disease with (acute) exacerbation; Z87.01 Personal history of pneumonia (recurrent); Z79.4 Long term (current) use of insulin; Z95.1 Presence of aortocoronary bypass graft; I25.10 Atherosclerotic heart disease of native coronary artery without angina pectoris; G47.33 Obstructive sleep apnea (adult) (pediatric); I10 Essential (primary) hypertension; E78.5 Hyperlipidemia, unspecified; N40.0 Benign prostatic hyperplasia without lower urinary tract symptoms; K21.9 Gastro-esophageal reflux disease without esophagitis; Z86.73 Personal history of transient ischemic attack (TIA), and cerebral infarction without residual deficits; Z79.01 Long term (current) use of anticoagulants; Z87.891 Personal history of nicotine dependence; E66.9 Obesity, unspecified; Z79.899 Other long term (current) drug therapy; Z68.37 Body mass index [BMI] 37.0-37.9, adult
CPT/HCPCS: 71020; 71275; 80048; 80069; 81001; 82962; 83605; 83735; 83880; 84145; 84439; 84443; 84484; 85025; 85610; 85730; 87040; 87045; 87046; 87046-59; 87328; 87329; 87449; 87493; 87493-59; 87899; 87899-59; 92960; 93005; 93312; 93320; 93325; 94640; 94667; 94668; 96374; 99285; A9270-GY; C8929; J0456; J2543; J2930; J3370; J7500; Q9957; Q9967

== ENCOUNTER 2016-12-27 16:14 | Inpatient (IN) | payer MEDICARE, OTHER ==
--- NOTE | ~2016-12-27 | DS ---
Discharge Summary [facility] [address] [place]. [address] NAME: RENETTA RODRIGUES : 45 STATUS : DIS IN PAT#: [id number] AGE: 71 ADM/REG DATE : 12/27/16 MR#: [id number] REPORT SERV DATE: 01/04/17 DICTATED BY: JASWINDER VALENCIA DATE: 01/03/17 REPORT STATUS : Draft TRANSCRIBED BY: MARION DATE: 01/03/17 Data Collection from hospitalization DISCHARGE DIAGNOSIS(ES): 1. Atrial fibrillation with rapid ventricular response. 2. Hypertension. 3. Hyperlipidemia. 4. Diabetes mellitus. 5. Crohn's disease. 6. History of gastrointestinal bleed. 7. Occupational lung disease. CONSULTATIONS: None. PROCEDURES PERFORMED: Elective GHANSHYAM cardioversion, 12/30/2016. MEDICATIONS: Zyloprim 150 mg every morning; Lipitor 20 mg at bedtime; amiodarone HCL 400 mg twice daily x7 days total, then 200 mg daily thereafter; Bentyl 20 mg four times daily; Cardizem CD 240 mg daily; Pepcid 20 mg every morning; Lantus insulin 58 units at bedtime; NovoLog insulin 10 units sliding scale as directed; Zyrtec 10 mg every morning; Pentasa CR 1000 mg four times a day; Robaxin 750 mg three times a day; Carafate 1 g before meals and at bedtime; Spiriva one capsule every morning; Coumadin as directed; prednisone 10 mg daily x14 days; ProAir two puffs four times daily as needed; albuterol three times daily as needed; Advair Diskus one puff twice daily; Klonopin 1 mg at bedtime as needed; Centrum with minerals one every morning; Flonase one spray each nostril twice daily as needed; and Nitrostat 0.4 mg sublingually as needed. CONDITION AT DISCHARGE: Upon discharge, he did appear to be doing well and had no complaints. DISPOSITION: He had been discharged home to continue an 1800-calorie ADA diet with activity as discussed. He was to follow up with me in the office in two to three weeks. Follow up with the [facility] on 01/02/2017. Follow up with the [facility]one Clinic in six weeks. HOSPITAL COURSE: This 71-year-old male was admitted with atrial fibrillation. He had a known atrial fibrillation. He was on warfarin anticoagulation. He also had a history of coronary artery disease. I had seen him on 12/19/2016 when he was scheduled for GHANSHYAM cardioversion with an amiodarone load. He had not started that yet. He had persistent palpitations almost daily with heart rates up to 150. He had no stroke or stroke-like symptoms. He had no bleeding. He had no chest discomfort. He was admitted for GHANSHYAM cardioversion and further evaluation. Upon admission to the hospital, he had been placed on warfarin initiation as well as diltiazem protocol. He was begun on an 1800-calorie ADA diet and was admitted to telemetry. He had also been placed on bronchodilators per protocol. Following the day of admission, his INR was at 2.5. He was still in atrial fibrillation with RVR on telemetry. He had no complaints of chest pain or dyspnea. His amiodarone was changed to IV bolus and drip. If his atrial fibrillation continued to be persistent, then he was to undergo transesophageal echocardiogram and cardioversion. On 12/29/2016, he did Discharge Summary [address] [place]. [address] NAME: RENETTA RODRIGUES : 45 STATUS : DIS IN PAT#: [id number] AGE: 71 ADM/REG DATE : 12/27/16 MR#: [id number] REPORT SERV DATE: 01/04/17 DICTATED BY: JASWINDER VALENCIA DATE: 01/03/17 REPORT STATUS : Draft TRANSCRIBED BY: MARION DATE: 01/03/17 continue with persistent atrial fibrillation. His potassium was at 4.1, creatinine 0.89, INR 2.8, and despite amiodarone load IV, he was still in atrial fibrillation. The risks and benefits as well as alternatives to the cardioversion were discussed with the patient. He was agreeable to proceed. He did remain in stable condition, and on 12/30/2016, he did undergo the above procedure. He tolerated this well and had had successful conversion to sinus rhythm and had no complications from the study. Due to his stable condition, he was then discharged later that same day with the above instructions. Information collected by: Dariel CarlsonIRembertoT. I submit the above information as my discharge summary. DONALD/MARION Jaswinder Valencia M.D. / [id number] CC: Caterina Albright M.D.
--- NOTE | ~2016-12-27 | OP ---
Record Of Operation [facility] [address] [place]. [address] NAME: RENETTA RODRIGUES : 45 STATUS : ADM IN PAT#: [id number] AGE: 71 ADM/REG DATE : 12/27/16 MR#: [id number] REPORT SERV DATE: 12/30/16 DICTATED BY: ARNALDO BEE DATE: 12/30/16 REPORT STATUS : Draft TRANSCRIBED BY: MODL DATE: 12/30/16 DATE OF PROCEDURE: 12/30/2016 REASON FOR PROCEDURE: Atrial fibrillation with RVR. PROCEDURE TYPE: Elective GHANSHYAM cardioversion. PROCEDURE DESCRIPTION: All questions were answered and an informed consent was obtained. Anesthesia sedated the patient. Upon successful sedation, the transesophageal probe was inserted without complication. Salient echocardiographic windows were obtained with particular attention to the appendage. Upon clearance of the appendage, the patient was shocked at 200 joules x2 without successful conversion. The patient was subsequently shocked at 360 joules x1 with successful conversion to sinus rhythm. There were no complications from the study. ECHOCARDIOGRAPHIC FINDINGS: 1. Borderline normal biventricular function. 2. Moderate MR on color Doppler. 3. Trace TR/VT. 4. Color Doppler also demonstrates a zory-th-byisf shunt across the interatrial septum, possibly suggestive of a stretched PFO versus ASD. 5. No thrombus is seen in the left atrial appendage at the time of the study. MARY/MARION Arnaldo Bee MD / [id number] CC: Caterina Albright M.D.
--- NOTE | ~2016-12-27 | PRECARD ---
H&P [facility] [address] [place]. [address] NAME: RENETTA LARSON : 45 STATUS : REG ER PAT#: [id number] AGE: 71 ADM/REG DATE : 12/27/16 MR#: [id number] REPORT SERV DATE: 12/27/16 DICTATED BY: STEVEN WHITTINGTON DATE: 12/27/16 REPORT STATUS : Draft TRANSCRIBED BY: MARION DATE: 12/27/16 DATE OF ADMISSION: 12/27/2016 HISTORY OF PRESENT ILLNESS: Mr. Renetta Larson is a 71-year-old gentleman, admitted with atrial fibrillation. Mr. Larson had a known atrial fibrillation, he is on warfarin anticoagulation. He also history of coronary artery disease. He saw Dr. Tse on 12/19/2016, when he was scheduled for GHANSHYAM cardioversion with an amiodarone load. He has not started that yet. Since he saw Dr. Tse on 12/19/2016, he has had persistent palpitations almost daily. Heart rates up to 150. He has had no stroke or stroke-like symptoms. He has had no bleeding. He had no chest discomfort. PAST MEDICAL HISTORY: Crohn's disease, diabetes, hypertension, hyperlipidemia, prior GI bleed, occupational lung disease. MEDICINES: Advair, allergy relief kmqg-vfm-nneqmlt, cetirizine, allopurinol, Lipitor, azathioprine, Klonopin, dicyclomine, diltiazem 120 daily, insulin, Jantoven, Prilosec, ProAir, Robaxin, Spiriva, sucralfate. FAMILY HISTORY: Noncontributory. REVIEW OF SYSTEMS: Complete review of systems was obtained, pertinent negative and unremarkable except as noted above and below. All systems addressed. PHYSICAL EXAMINATION: VITAL SIGNS: Blood pressure is about 140/90, heart rate 80. GENERAL: Comfortable, in no acute distress. HEENT: No xanthelasma; lips without cyanosis LUNGS: Clear to auscultation, have occasional wheezes, rhonchi, good breath sounds. COR: No JVD or hepatojugular reflux, no murmurs, rubs or gallops, impulse mid clavicular line without carotid or abdominal bruits; normal S1 and S2. ABDOMEN: Bowel sounds positive, normal activity, without tenderness, masses or hepatosplenomegaly. EXTREMITIES: No edema, cyanosis. SKIN: Normal turgor. Ms: Normal muscle strength, without kyphosis/scoliosis. NEURO/PSYCH: Alert and oriented times 4, no apparent anxiety or depression. H&P [address] [address] NAME: RENETTA LARSON : 45 STATUS : REG ER PAT#: [id number] AGE: 71 ADM/REG DATE : 12/27/16 MR#: [id number] REPORT SERV DATE: 12/27/16 DICTATED BY: STEVEN WHITTINGTON DATE: 12/27/16 REPORT STATUS : Draft TRANSCRIBED BY: MARION DATE: 12/27/16 LABORATORY DATA: BUN 10, creatinine 1.0. White count 8.9, hematocrit 38.7. INR is 2.4. Troponin less than 0.02. Telemetry demonstrates atrial fibrillation, ventricular response of 80. EKG, atrial fibrillation, ventricular response about 144. ASSESSMENT: Mr. Larson is a very nice 71-year-old gentleman with atrial fibrillation. He is on warfarin anticoagulant for therapeutic INR. His heart rate is 140 on arrival, his heart rate is now in the 80s on diltiazem 5 mg. PLAN: 1. Diltiazem drip. 2. I will add oral diltiazem, hopefully get that discontinued. 3. We will begin amiodarone, Dr. Tse has ordered that amiodarone as an outpatient that had not been started yet. ANITHA/MARION Steven Whittington M.D. / [id number] CC: Matt River M.D.
[2016-12-27 13:18] LABS: BASOPHILS 0.2 %; BASOPHILS ABSOLUTE 0.02 10/3/uL (0.0-0.16); EOSINOPHILS 0.3 %; EOSINOPHILS ABSOLUTE 0.03 10/3/uL (0.0-0.53); ER CBC TAT 0 Hrs 09 Mins; HEMATOCRIT 38.7 % (40.0-51.0); HEMOGLOBIN 12.7 g/dL (13.6-17.8); IMMATURE GRANULOCYTES 0.9 %; IMMATURE GRANULOCYTES ABSOLUTE 0.08 10/3/uL (0.0-0.11); LYMPHOCYTES 8.7 %; LYMPHOCYTES ABSOLUTE 0.77 10/3/uL (0.67-4.30); MANUAL DIFF NO %; MEAN CORPUS HGB CONC 32.8 g/dL (32.0-36.0); MEAN CORPUSCULAR HEMOGLOB 35.3 pg (26.0-34.0); MEAN CORPUSCULAR VOLUME 107.5 fL (80-100); MEAN PLATELET VOLUME 10.8 fL (9.2-13.0); MONOCYTES 8.2 %; MONOCYTES ABSOLUTE 0.73 10/3/uL (0.21-1.20); NEUTROPHILS 81.7 %; NEUTROPHILS ABSOLUTE 7.23 10/3/uL (2.02-8.40); PLATELET COUNT 189 10/3/uL (150-400); RBC DISTRIBUTION WIDTH 18.4 % (12.0-16.0); WHITE BLOOD CELLS 8.9 10/3/uL (4.5-10.5)
[2016-12-27 13:24] LABS: INTERNATIONAL NORMAL RATI 2.4 UNITS (-); PARTIAL THROMBO TIME 39.9 SEC (22.5-37.2); PROTIME (NOT ORD) 26.2 SEC (12.0-14.5)
[2016-12-27 13:37] LABS: CALCIUM, SERUM 8.3 MG/DL (8.5-10.4); CHEST PAIN PROFILE TAT 0 Hrs 28 Mins; CHLORIDE, SERUM 102 MMOL/L (96-112); CREATININE 1.01 MG/DL (0.70-1.30); GFR AFRICAN AMERICAN 86 ML/MIN (>=60); GFR NON AFRICAN AMERICAN 74 ML/MIN (>=60); GLUCOSE, SERUM 175 MG/DL (60-99); POTASSIUM, SERUM 4.5 MMOL/L (3.5-5.3); SODIUM, SERUM 137 MMOL/L (135-148); TROPONIN I <0.02 NG/ML (<0.05)
[2016-12-27 13:39] LABS: BUN (BLOOD UREA NITROGEN) 10 MG/DL (6-23); CO2 (CARBON DIOXIDE) 29 MMOL/L (24-34)
[~2016-12-27 16:14] MED LIST changes: +AUG875 PO; +CARDCD240 PO; +METHOC750B PO; +OMNICEF300 PO; +STERAPRED DS10 MG PO
[2016-12-27] MEDS ORDERED: LIPITOR20 PO (16:48)
[2016-12-27] MEDS ORDERED: KLONO1 PO (16:50)
[2016-12-27] MEDS ORDERED: Z100 PO (16:50)
[2016-12-27] MEDS ORDERED: METHOC750B PO (16:50)
[2016-12-27] MEDS ORDERED: PROAIR HFA INH (16:51)
[2016-12-27] MEDS ORDERED: ZYRTEC ALLGY10 MG PO (16:51)
[2016-12-27] MEDS ORDERED: ALBUTEROL0.083 % INH (16:52)
[2016-12-27] MEDS ORDERED: SPIRIVA INH (16:52)
[2016-12-27] MEDS ORDERED: SUCR PO (16:53)
[2016-12-27] MEDS ORDERED: ADVAIR250 INH (16:53)
[2016-12-27] MEDS ORDERED: PENTASA500 MG PO (16:54)
[2016-12-27] MEDS ORDERED: JANTOVEN1 MG PO (16:55)
[2016-12-27] MEDS ORDERED: LANTUS SC (16:56)
[2016-12-27] MEDS ORDERED: CARDCD180 PO (16:56)
[2016-12-27] MEDS ORDERED: NOVOLOG SC (16:57)
[2016-12-27] MEDS ORDERED: BENTYL20 PO (16:58)
[2016-12-27] MEDS ORDERED: CENTRUM PO (16:59)
[2016-12-27] MEDS ORDERED: PEP20 PO (16:59)
[2016-12-27] MEDS ORDERED: FLONASE NAS (17:00)
[2016-12-27] MEDS ORDERED: P10 PO (17:03)
[2016-12-27] MEDS ORDERED: NITROSTAT0.4 MG SL (17:04)
[2016-12-28 04:05] LABS: BUN (BLOOD UREA NITROGEN) 13 MG/DL (6-23); CALCIUM, SERUM 8.4 MG/DL (8.5-10.4); CHLORIDE, SERUM 106 MMOL/L (96-112); CO2 (CARBON DIOXIDE) 28 MMOL/L (24-34); CREATININE 0.86 MG/DL (0.70-1.30); GFR AFRICAN AMERICAN 101 ML/MIN (>=60); GFR NON AFRICAN AMERICAN 87 ML/MIN (>=60); GLUCOSE, SERUM 104 MG/DL (60-99); SODIUM, SERUM 140 MMOL/L (135-148)
[2016-12-28 04:09] LABS: INTERNATIONAL NORMAL RATI 2.5 UNITS (-); PROTIME (NOT ORD) 26.7 SEC (12.0-14.5)
[2016-12-29 04:41] LABS: INTERNATIONAL NORMAL RATI 2.8 UNITS (-); PROTIME (NOT ORD) 28.9 SEC (12.0-14.5)
[2016-12-29 04:47] LABS: BUN (BLOOD UREA NITROGEN) 11 MG/DL (6-23); CALCIUM, SERUM 8.5 MG/DL (8.5-10.4); CHLORIDE, SERUM 103 MMOL/L (96-112); CO2 (CARBON DIOXIDE) 25 MMOL/L (24-34); CREATININE 0.89 MG/DL (0.70-1.30); GFR AFRICAN AMERICAN 100 ML/MIN (>=60); GFR NON AFRICAN AMERICAN 86 ML/MIN (>=60); GLUCOSE, SERUM 94 MG/DL (60-99); POTASSIUM, SERUM 4.1 MMOL/L (3.5-5.3); SODIUM, SERUM 137 MMOL/L (135-148)
[2016-12-30 06:46] LABS: BASOPHILS 0.2 %; BASOPHILS ABSOLUTE 0.02 10/3/uL (0.0-0.16); EOSINOPHILS 0.4 %; EOSINOPHILS ABSOLUTE 0.04 10/3/uL (0.0-0.53); HEMOGLOBIN 10.9 g/dL (13.6-17.8); IMMATURE GRANULOCYTES ABSOLUTE 0.11 10/3/uL (0.0-0.11); LYMPHOCYTES 5.9 %; LYMPHOCYTES ABSOLUTE 0.63 10/3/uL (0.67-4.30); MEAN CORPUS HGB CONC 33.7 g/dL (32.0-36.0); MEAN PLATELET VOLUME 11.1 fL (9.2-13.0); MONOCYTES 13.1 %; MONOCYTES ABSOLUTE 1.41 10/3/uL (0.21-1.20); NEUTROPHILS 79.4 %; NEUTROPHILS ABSOLUTE 8.55 10/3/uL (2.02-8.40); PLATELET COUNT 192 10/3/uL (150-400); RBC DISTRIBUTION WIDTH 17.4 % (12.0-16.0); RED CELL COUNT 3.11 10/6/uL (4.7-6.1); WHITE BLOOD CELLS 10.8 10/3/uL (4.5-10.5)
[2016-12-30 06:48] LABS: HEMATOCRIT 32.3 % (40.0-51.0); MANUAL DIFF NO %; MEAN CORPUSCULAR VOLUME 103.9 fL (80-100)
[2016-12-30 06:49] LABS: INTERNATIONAL NORMAL RATI 2.7 UNITS (-); PROTIME (NOT ORD) 28.8 SEC (12.0-14.5)
[2016-12-30 06:50] LABS: BUN (BLOOD UREA NITROGEN) 13 MG/DL (6-23); CALCIUM, SERUM 8.8 MG/DL (8.5-10.4); CHLORIDE, SERUM 105 MMOL/L (96-112); CO2 (CARBON DIOXIDE) 25 MMOL/L (24-34); CREATININE 0.86 MG/DL (0.70-1.30); GFR AFRICAN AMERICAN 101 ML/MIN (>=60); GFR NON AFRICAN AMERICAN 87 ML/MIN (>=60); POTASSIUM, SERUM 4.1 MMOL/L (3.5-5.3); SODIUM, SERUM 136 MMOL/L (135-148)
[2016-12-30 06:51] LABS: GLUCOSE, SERUM 68 MG/DL (60-99)
[2016-12-30 14:33] LABS: INTERNATIONAL NORMAL RATI 2.6 UNITS (-); PROTIME (NOT ORD) 27.3 SEC (12.0-14.5)
[2016-12-30] MEDS ORDERED: PACERONE400 MG PO (19:01)
[2016-12-30] MEDS ORDERED: CARTIA XT240 MG/24 PO (19:03)
[2016-12-30] MEDS ORDERED: COUMADIN3 MG PO (19:07)
[2016-12-30] MEDS ORDERED: JANTOVEN2 MG PO (19:09)
[2016-12-31] MEDS ORDERED: CORDARONE PO (18:16)
[2016-12-31] MEDS ORDERED: NOVOLOG SC (18:23)
[2017-01-07] MEDS ORDERED: CEFT5 PO (15:51)
[2017-01-14] MEDS ORDERED: PEP20 PO (13:14)
[2017-01-14] MEDS ORDERED: PRILO PO (13:16)
[2017-01-14] MEDS ORDERED: IMU PO (13:18)
[2017-01-15] MEDS ORDERED: VENTOLIN HFA INH (02:07)
[2017-01-15] MEDS ORDERED: SPIRIVA INH (02:07)
[2017-01-15] MEDS ORDERED: ADVAIR250 INH (02:07)
[2017-01-15] MEDS ORDERED: CORDARONE PO (02:08)
[2017-01-15] MEDS ORDERED: FLONASE NAS (02:08)
[2017-01-15] MEDS ORDERED: ALBUTEROL0.083 % INH (02:08)
[2017-01-15] MEDS ORDERED: CARDCD240 PO (02:09)
[2017-01-15] MEDS ORDERED: SUCR PO (02:09)
[2017-01-15] MEDS ORDERED: PEP20 PO (02:09)
[2017-01-15] MEDS ORDERED: C5 PO (02:09)
[2017-01-15] MEDS ORDERED: IMU PO (02:09)
[2017-01-15] MEDS ORDERED: ZYRTEC ALLGY10 MG PO (02:10)
[2017-01-15] MEDS ORDERED: Z100 PO (02:10)
[2017-01-15] MEDS ORDERED: PROBIOTIC OTC PO (02:10)
[2017-01-15] MEDS ORDERED: NOVOLOG SC ×2 (02:12)
[2017-01-15] MEDS ORDERED: KLONO1 PO (02:13)
[2017-01-15] MEDS ORDERED: CYANO1000T PO (02:13)
[2017-01-15] MEDS ORDERED: CENTRUM PO (02:13)
[2017-01-15] MEDS ORDERED: LANTUSCART SC (02:13)
[2017-01-15] MEDS ORDERED: FOLIC ACID400 MC1 PO (02:13)
[2017-01-15] MEDS ORDERED: LOP25 PO (02:14)
[2017-01-15] MEDS ORDERED: KLONO5 PO (02:14)
[2017-01-15] MEDS ORDERED: P10 PO (02:15)
[2017-01-15] MEDS ORDERED: VIBRATAB100 MG PO (02:15)
[2017-01-15] MEDS ORDERED: PENTASA500 MG PO (02:16)
[2017-01-15] MEDS ORDERED: CEFT5 PO (02:16)
[2017-01-15] MEDS ORDERED: LIPITOR20 PO (02:17)
[2017-01-15] MEDS ORDERED: NITROSTAT0.4 MG SL (02:18)
[2017-01-20] MEDS ORDERED: FLORASTOR250 MG PO (10:45)
[2017-01-20] MEDS ORDERED: OMNICEF300 PO (10:48)
== END 2016-12-30 20:07 | disposition home or self-care (01) | DRG 309 ==
LOC: ER 16:14 → 7NO 18:19
PROVIDERS: Emergency Medicine; Internal Medicine Cardiovascular Disease
PROC: B246ZZ4 Ultrasonography of Right and Left Heart, Transesophageal (ICD-10-PCS; principal; 2016-12-30)
PROC: 5A2204Z Restoration of Cardiac Rhythm, Single (ICD-10-PCS; 2016-12-30)
DX: I48.1 Persistent atrial fibrillation (principal); K50.90 Crohn's disease, unspecified, without complications; I25.10 Atherosclerotic heart disease of native coronary artery without angina pectoris; Z79.01 Long term (current) use of anticoagulants; J32.9 Chronic sinusitis, unspecified
CPT/HCPCS: 71020; 80048; 82962; 83735; 84484; 85025; 85610; 85730; 92960; 93005; 93312; 93320; 93325; 94640; 96365; 96366; 99285; A9270-GY; J0282

== ENCOUNTER 2016-12-31 17:23 | Inpatient (IN) | payer MEDICARE, OTHER ==
--- NOTE | ~2016-12-31 | DS ---
Discharge Summary [facility] [address] [facility] [place]. [address] NAME: RENETTA RODRIGUES : 45 STATUS : DIS IN PAT#: [id number] AGE: 71 ADM/REG DATE : 12/31/16 MR#: [id number] REPORT SERV DATE: 01/07/17 DICTATED BY: LUCIA FERRARO DATE: 01/05/17 REPORT STATUS : Draft TRANSCRIBED BY: MODL DATE: 01/05/17 ADMISSION DATE: 12/31/2016 DISCHARGE DATE: 01/05/2017 DISCHARGE DIAGNOSES: 1. Healthcare-associated pneumonia. 2. Acute exacerbation of chronic obstructive pulmonary disease. 3. Diabetes with hyperglycemia. 4. Paroxysmal atrial fibrillation with failed transesophageal cardioversion x2, 11/25/2016 and 12/30/2016. 5. Mitral regurgitation. 6. Moap-jf-hwznu shunt. 7. Coronary artery disease, status post coronary artery bypass graft. 8. Hypertension. 9. Hyperlipidemia. 10.Sleep apnea on CPAP. 11.Crohn disease on immunosuppressive therapy. Previous Humira discontinued because of volume overload. 12.Gastroesophageal reflux disease. 13.Colon polyps. 14.B12 and folate deficiency. 15.Macrocytic anemia. 16.Hypogammaglobulinemia IgG, current level 253, reference range 673 to 1464, pending at the time of discharge, serum immunofixation to evaluate for monoclonal gammopathy. 17.Loculated pleural fluid, left major fissure. Outpatient followup with Pulmonary planned. 18.Benign prostatic hypertrophy. 19.Previous stroke. 20.History of gout. OPERATIONS AND PROCEDURES: None. PRESENT ILLNESS: This is a 71-year-old white male who was triaged in the emergency room on 12/31/2016 at 1618 hours having been instructed to come to the emergency room by his control systems specialist because of an irregular heart rhythm. Admission vital signs: Blood pressure 151/73, temp 98.2, pulse 138, respirations 16, O2 sat 95%. After evaluation in the emergency room in addition to atrial fibrillation with rapid ventricular response, he was thought to have pneumonia. He was referred to the Hospitalist Service. He was seen by Dr. Tenisha Priest and admitted as described on admission history and physical examination. Significant recent history included a second elective GHANSHYAM cardioversion on 12/30/2016. No thrombus was identified. A fwel-kz-kccbv shunt across the interatrial septum was noted. Moderate MR and trace TR/WY was noted. He was shocked at 200 joules x2 without successful cardioversion. He was subsequently shocked at 360 with successful cardioversion to sinus Discharge Summary [place] [address] [place]. [address] NAME: RENETTA RODRIGUES : 45 STATUS : DIS IN PAT#: [id number] AGE: 71 ADM/REG DATE : 12/31/16 MR#: [id number] REPORT SERV DATE: 01/07/17 DICTATED BY: LUCIA FERRARO DATE: 01/05/17 REPORT STATUS : Draft TRANSCRIBED BY: MARION DATE: 01/05/17 rhythm. He was discharged home. At home, he developed cough and sputum production, increased shortness of breath, and tachy palpitations. ADDITIONAL HISTORY: Per Dr. Priest. PHYSICAL EXAMINATION: Per Dr. Priest. ADMISSION LABORATORY: Per Dr. Priest. HOSPITAL COURSE: He was admitted by Dr. Priest with: 1. Hospital-acquired pneumonia. 2. Paroxysmal atrial fibrillation. Both occurring in the setting of the above-mentioned comorbidities. He was admitted to [address] [place] [address]. Cultures were obtained. He was started on cefepime, vancomycin, aerosols, and O2. Additional diagnostic studies were ordered. Cardiology consultation was obtained for his recurrent atrial fibrillation. His hospital care was assumed by the undersigned. Additional imaging was done that included a CT chest without contrast that showed bilateral lower lobe infiltrates, right greater than left with minimal infiltrate in the right upper lobe. There was bilateral pleural fluid. There was fluid in the left major fissure accounting for majority of opacity in left upper chest. Note, this had been present during a November hospitalization. He had seen Dr. Rivera at that time. Outpatient followup had been recommended. Streptococcal and Legionella urinary antigens were not detected. Cultures of blood were performed and were no growth at four days. A sputum culture grew normal von and sparse yeast. During the course of his hospitalization, his white blood cell count fell from 10.8 on 12/30/2016 to 8.8 on 01/04/2017. A procalcitonin level had been 0.07 on 12/31/2016 and was not rechecked. A procalcitonin level on that date was 28.7. Symptomatically, during the course of his hospitalization with the above-mentioned therapy, his cough largely resolved. His sputum production resolved. His dyspnea resolved except dyspnea on exertion. At discharge, his room air sat was 99 and walking sat 94 to 95 on room air. He achieved rate control of his atrial fibrillation with amiodarone, Cardizem, and metoprolol. He was followed by Dr. Ma. Dr. Ma recommended outpatient followup with consideration of a third attempt at GHANSHYAM cardioversion once fully loaded with amiodarone as the patient does have significant symptoms while in atrial fibrillation. His Coumadin anticoagulation was maintained while hospitalized. His INRs were therapeutic. Discharge Summary [place] [id number] [place]. [address] NAME: RENETTA RODRIGUES : 45 STATUS : DIS IN PAT#: [id number] AGE: 71 ADM/REG DATE : 12/31/16 MR#: [id number] REPORT SERV DATE: 01/07/17 DICTATED BY: LUCIA FERRARO DATE: 01/05/17 REPORT STATUS : Draft TRANSCRIBED BY: MARION DATE: 01/05/17 He had no evident mucosal bleeding. His hemoglobin was 10.9 on admission, falling to 9.8 on the th and 9.7 on the th. He has an MCV of 105.7. He had been told by a provider that his B12 and folic acid levels were low and this replacement was to begin in the outpatient setting. Additional evaluation here included a reticulocyte count, it was 3.4 with an absolute value of 105.4. B12 level was 374 and ferritin 116. A TSH was 1.110. A serum protein electrophoresis demonstrated marked hypogammaglobulinemia. This immunofixation was obtained and is pending. Quantitative immunoglobulin levels were IgG 253, IgA 112, IgM 40. By 01/05/2017, it was felt that he had achieved a level of clinical improvement and stability where he could be safely discharged home to be seen by Dr. River on . He also has scheduled followup to see his other physicians, Dr. Beard, Dr. Jay, and Dr. Ma/Dr. Tse. He will continue his home diet and activity. He has CPAP at home that he uses. DISCHARGE MEDICATIONS: Pending outpatient followup: Zyloprim 150 mg daily; Lipitor 20 mg daily; amiodarone 200 mg daily; diltiazem ER 240 mg daily; Flonase nasal spray twice daily as needed; Lantus 50 units daily, dose to be reduced pending reduction of prednisone dosing noting fasting blood sugar today 53, repeat 143, post glucose tablets a.c. lunch 120; insulin NovoLog 10 units before meals; insulin NovoLog correction scale before meals; Zyrtec 10 mg daily; Pentasa CR 1000 mg four times daily; metoprolol 25 mg every 12 hours; Carafate 1 g four times daily; Coumadin 3 mg alternating with 2 mg every other day; prednisone 30 mg Friday, 20 mg Friday, 10 mg Friday, 10 mg , then Per Dr. River on followup; albuterol nebs every four hours as needed; Advair Diskus one puff twice daily; Klonopin 1 mg at night as needed; albuterol MDI two puffs four times daily when away from home as needed; Spiriva HandiHaler one capsule daily; Centrum tablets daily; nitroglycerin sublingually as needed; doxycycline 100 mg twice daily for five days; Ceftin 500 mg twice daily for five days. Discharge time greater than 30 minutes. DICTATED BY: Lucia Ferraro M.D. DD/MARION Lucia Ferraro M.D. / [id number] CC: Discharge Summary [address] [address] NAME: RENETTA RODRIGUES : 45 STATUS : DIS IN PAT#: [id number] AGE: 71 ADM/REG DATE : 12/31/16 MR#: [id number] REPORT SERV DATE: 01/07/17 DICTATED BY: LUCIA FERRARO DATE: 01/05/17 REPORT STATUS : Draft TRANSCRIBED BY: MODL DATE: 01/05/17 Caterina Castelan M.D.
--- NOTE | ~2016-12-31 | CN ---
Consultation Report [facility] [address] [place]. [address] NAME: RENETTA LARSON : 45 STATUS : ADM IN PAT#: [id number] AGE: 71 ADM/REG DATE : 12/31/16 MR#: [id number] REPORT SERV DATE: 01/01/17 DICTATED BY: IFRAH JACOBS DATE: 12/31/16 REPORT STATUS : Draft TRANSCRIBED BY: MODL DATE: 12/31/16 CARDIOLOGY CONSULTATION DATE OF CONSULTATION: 12/31/2016 Cardiology consultation regarding atrial fibrillation. HISTORY OF PRESENT ILLNESS: Mr. Larson is a pleasant 71-year-old gentleman with a known history of atrial fibrillation and coronary artery disease. He sees Dr. Neto Tse. He is status post CAB. The patient has normal cardiac structure and function. He came in with complaints of palpitations as well as cough that is productive. In the emergency room, he was found to have evidence of pneumonia on his chest x-ray. The patient was recently discharged after an admission last in which he complained of an increasing shortness of breath and palpitation. He was noted to be in atrial fibrillation at that time. He was started on IV and oral amiodarone and then underwent cardioversion with GHANSHYAM yesterday. He did convert to sinus rhythm, but then last evening, he began having palpitations, and this morning, he presented to the emergency room with these complaints and was noted to be in atrial fibrillation with rapid ventricular response. The patient has documentation of atrial fibrillation dating back to October of 2016. He underwent his first cardioversion in November of 2016 at that time without any antiarrhythmic agent. He has a known history of coronary artery disease, status post CAB. The patient has mild left atrial enlargement, otherwise normal cardiac structure and function. PAST MEDICAL HISTORY: 1. Notable for coronary disease, status post CAB. No maze procedure was performed at the time of his CAB. Normal cardiac structure and function. 2. Crohn's disease. 3. Obstructive sleep apnea. 4. History of lung disease thought to be occupationally related history of hypertension, obesity. FAMILY HISTORY: Negative for premature coronary disease or sudden cardiac . SOCIAL HISTORY: Remote tobacco. Had approximately 26-year history of smoking. Negative for alcohol. He is . REVIEW OF SYSTEMS: As noted above. All other systems reviewed. PHYSICAL EXAMINATION: GENERAL: No acute distress. The patient is comfortable. Receiving IV Cardizem. VITAL SIGNS: Blood pressure of 130/70, pulse currently 90, respirations 16. GENERAL: Well developed, well nourished. HEENT: No icterus. Good dentition. Consultation Report [place] [id number] [place]. [address] NAME: RENETTA LARSON : 45 STATUS : ADM IN [facility]#: [id number] AGE: 71 ADM/REG DATE : 12/31/16 MR#: [id number] REPORT SERV DATE: 01/01/17 DICTATED BY: IFRAH JACOBS DATE: 12/31/16 REPORT STATUS : Draft TRANSCRIBED BY: MARION DATE: 12/31/16 NECK: Supple. No masses or thyromegaly LUNGS: Breathing comfortably. No rales or wheezes. COR: He has an irregularly irregular rhythm. ABD: Soft, nondistended, nontender, no hepatosplenomegaly. EXT: No clubbing, cyanosis or edema. Peripheral pulses 2+/=bilaterally. SKIN: Warm and dry. No visible lesions. MS: Chest wall without deformity, no obvious clavicular fractures. NEURO/PSYCH: Oriented X3. No anxiety or depression. STUDIES: EKG shows atrial fibrillation. Ventricular response 134 beats per minute. Normal QRS, QT intervals. No evidence for ischemia infarction or chamber hypertrophy. IMPRESSION: The patient with atrial fibrillation with rapid ventricular response. He has undergone cardioversion on IV and p.o. amiodarone yesterday and has early recurrence of the atrial fibrillation. I would recommend that we try rate control with combination of beta aidan, calcium channel aidan, and continued use of amiodarone. I would try to see if we can wean the IV Cardizem. I would recommend trying to load the amiodarone for one to two weeks. Then I will consider cardioversion at that time. If he fails to maintain sinus rhythm despite those issues, then I believe, we should either consider a rate control strategy with medications or possibly consider an ablative strategy. Ablation probably has a success rate of 50% or less. We will continue his anticoagulation. He is being treated for pneumonia by the Hospitalist Service. JIM/MARION Ifrah Jacobs M.D. / [id number] CC: Caterina Castelan M.D.
--- NOTE | ~2016-12-31 | HP ---
History And Physical [facility] [address] [facility] [place]. [address] NAME: RENETTA RODRIGUES : 45 STATUS : ADM IN [facility]#: [id number] AGE: 71 ADM/REG DATE : 12/31/16 MR#: [id number] REPORT SERV DATE: 01/01/17 DICTATED BY: TENISHA HELLER DATE: 12/31/16 REPORT STATUS : Draft TRANSCRIBED BY: MODStephania DATE: 12/31/16 DATE OF ADMISSION: 12/31/2016 CHIEF COMPLAINT: Palpitations, cough, sputum production, subjective fevers, and chills starting this morning. HISTORY OF PRESENT ILLNESS: He is a very pleasant 71-year-old gentleman. He does have past medical history significant for paroxysmal atrial fibrillation, status post recurrent cardioversion; recent cardioversion was during this prior hospitalization; history of COPD; history of hypertension; diabetes; prior history of pneumonia; history of obstructive sleep apnea; diabetes type 2, insulin dependent; coronary artery disease with prior remote bypass; history of prior CVA; BPH; and hyperlipidemia, who recently has been admitted to [facility] and discharged yesterday after an elective GHANSHYAM cardioversion. Since he was in hospital, the patient has developed some cough, productive of sputum. His symptoms got progressively worse and this morning, although he has been cardioverted. He felt again palpitations and his heart rate was out of rhythm. He called his sales project administrator, Dr. Tse and he has been advised to come to [facility] for further evaluation and treatment. The patient has a history of COPD, but he is not on home oxygen. He does have a history of obstructive sleep apnea, for which he is taking CPAP at night and he has been on Coumadin. After initial evaluation in the emergency room, Hospitalist Service has been asked for admission, further evaluation, and treatment. PAST MEDICAL HISTORY: Coronary artery disease with prior CABG x3 about 10 years ago; history of AFib, paroxysmal, on Coumadin; COPD; obstructive sleep apnea, on CPAP; Crohn disease, currently on tapering steroids as well as Pentasa; history of hypertension; hyperlipidemia; BPH; history of CVA; history of GERD; prior history of pneumonia; history of asbestosis. PAST SURGICAL HISTORY: Include bilateral shoulder repair, umbilical hernia repair, prior CABG, cholecystectomy, appendectomy. ALLERGIES: THE PATIENT IS ALLERGIC TO MORPHINE AND ADHESIVE TAPE. MEDICATIONS: At home include albuterol, allopurinol, amiodarone, Lipitor, Zyrtec, Klonopin, Bentyl, Cartia, Flonase, Advair Diskus, insulin before meals, Lantus, mesalamine, multivitamin, nitroglycerin, prednisone, Carafate, Spiriva, and Jantoven. SOCIAL HISTORY: Again, he is not a smoker. He quit in 1979. No alcohol. No IV drugs. FAMILY HISTORY: Significant for heart disease. PHYSICAL EXAMINATION: VITAL SIGNS: He is afebrile currently. Blood pressure is 151/73, heart rate 138 on arrival, respiratory rate 16, and saturating 95% on room air. GENERAL: He is a very pleasant, well-developed, well-nourished gentleman, in no acute distress. He is alert and oriented x3. Nonfocal. He follows all his commands appropriately. History And Physical [address] [address] NAME: RENETTA RODRIGUES : 45 STATUS : ADM IN [facility]#: [id number] AGE: 71 ADM/REG DATE : 12/31/16 MR#: [id number] REPORT SERV DATE: 01/01/17 DICTATED BY: TENISHA HELLER DATE: 12/31/16 REPORT STATUS : Draft TRANSCRIBED BY: MARION DATE: 12/31/16 HEENT: Shows pupils equal, round, and reactive to light. Extraocular movements intact. No JVD. No lymphadenopathy. No thyromegaly appreciated. CHEST: Evaluation shows bilateral air entry. Clear anteroposterior. No wheezes, crackles, or rhonchi appreciated. CARDIOVASCULAR: His rate irregularly irregular. S1 and S2 positive. No S3. No S4. No murmurs, rubs, or gallops appreciated. ABDOMEN: Soft with positive bowel sounds. Nontender. No guarding. No rebound. EXTREMITIES: No clubbing, cyanosis, or edema. NEUROLOGIC: The patient is alert and oriented x3. He is nonfocal. He follows all his commands appropriately. LABORATORY DATA: Labs from today include sodium 138, potassium 4.1, chloride 107, CO2 of 23, BUN 14, creatinine 0.96, glucose is 169. His troponin is less than 0.02. His white count is 6.8, hemoglobin 11, hematocrit 32.9, platelets are 208. His INR is 2.4. His EKG shows atrial fibrillation with RVR 134 on arrival. His chest x-ray, PA and lateral, performed in the emergency room has shown left upper lobe infiltrate. ASSESSMENT: This is a very pleasant 71-year-old gentleman with: 1. Left upper lobe pneumonia. 2. Paroxysmal atrial fibrillation with recurrent cardioversion, on Coumadin anticoagulation. 3. History of Crohn disease, on immunosuppressive treatment. 4. History of coronary artery disease, status post CABG. 5. Chronic obstructive pulmonary disease. 6. Hypertension. 7. History of gastroesophageal reflux disease. 8. History of obstructive sleep apnea, on CPAP. 9. History of cerebrovascular accident. PLAN: 1. Regarding his left upper lobe pneumonia due to recent hospitalization, we are going to place him on cefepime and vancomycin, nebulizer treatment, oxygen. Supportive care with Mucinex, Nasonex. We will check sputum Gram stain and culture, a procalcitonin level. We are going to check a CT of the chest without contrast in the morning, blood cultures as well. 2. Paroxysmal atrial fibrillation. We are going to continue his Cordarone started during prior hospitalization. Place him currently on heparin drip as per protocol. Continue his Coumadin. We are going to consult the pharmacology to dose his Coumadin. Consult the patient's sales project administrator, Dr. Tse for further recommendation, rule him out for OR by serial cardiac enzymes and serial EKGs. 3. History of Crohn disease. We will continue his home medications. 4. History of hypertension. We will continue his home medications and provide p.r.n. hydralazine as needed. 5. Diabetes type 2. We are going to continue his home medication. Check on hemoglobin A1c. 6. We are going to provide reasonable pain and nausea control as well as GI and DVT prophylaxis with SCDs since the patient is already on Coumadin. Further workup and History And Physical [address] [address] NAME: RENETTA RODRIGUES : 45 STATUS : ADM IN [facility]#: [id number] AGE: 71 ADM/REG DATE : 12/31/16 MR#: [id number] REPORT SERV DATE: 01/01/17 DICTATED BY: TENISHA HELLER DATE: 06/13/17 REPORT STATUS : Draft TRANSCRIBED BY: MARION DATE: 12/31/16 recommendation pending above. It is worthwhile to note that the patient is going to be followed up by Hospitalist Service. CF/MARION Tenisha Heller M.D. / [id number] CC: Caterina Castelan M.D.
[2016-12-31 16:47] LABS: BASOPHILS 0.1 %; BASOPHILS ABSOLUTE 0.01 10/3/uL (0.0-0.16); EOSINOPHILS 0 %; ER CBC TAT 0 Hrs 05 Mins; HEMATOCRIT 32.9 % (40.0-51.0); IMMATURE GRANULOCYTES 0.7 %; IMMATURE GRANULOCYTES ABSOLUTE 0.05 10/3/uL (0.0-0.11); LYMPHOCYTES 7.4 %; MEAN CORPUS HGB CONC 33.4 g/dL (32.0-36.0); MEAN CORPUSCULAR HEMOGLOB 34.5 pg (26.0-34.0); MEAN CORPUSCULAR VOLUME 103.1 fL (80-100); MEAN PLATELET VOLUME 10.4 fL (9.2-13.0); MONOCYTES 7.4 %; NEUTROPHILS 84.4 %; NEUTROPHILS ABSOLUTE 5.72 10/3/uL (2.02-8.40); PLATELET COUNT 208 10/3/uL (150-400); RBC DISTRIBUTION WIDTH 16.5 % (12.0-16.0); RED CELL COUNT 3.19 10/6/uL (4.7-6.1); WHITE BLOOD CELLS 6.8 10/3/uL (4.5-10.5)
[2016-12-31 16:53] LABS: MANUAL DIFF NO %
[2016-12-31 16:56] LABS: INTERNATIONAL NORMAL RATI 2.4 UNITS (-); PARTIAL THROMBO TIME 51.3 SEC (22.5-37.2); PROTIME (NOT ORD) 25.7 SEC (12.0-14.5)
[2016-12-31 17:05] LABS: BUN (BLOOD UREA NITROGEN) 14 MG/DL (6-23); CALCIUM, SERUM 9.2 MG/DL (8.5-10.4); CHEST PAIN PROFILE TAT 0 Hrs 23 Mins; CHLORIDE, SERUM 107 MMOL/L (96-112); CO2 (CARBON DIOXIDE) 23 MMOL/L (24-34); CREATININE 0.96 MG/DL (0.70-1.30); GFR AFRICAN AMERICAN 92 ML/MIN (>=60); GFR NON AFRICAN AMERICAN 79 ML/MIN (>=60); POTASSIUM, SERUM 4.1 MMOL/L (3.5-5.3); SODIUM, SERUM 138 MMOL/L (135-148); TROPONIN I <0.02 NG/ML (<0.05)
[2016-12-31 17:09] LABS: GLUCOSE, SERUM 169 MG/DL (60-99)
[~2016-12-31 17:23] MED LIST changes: +CARDCD180 PO; +CARTIA XT240 MG/24 PO; +JANTOVEN2 MG PO; +NITROSTAT0.4 MG SL; +P10 PO; +PACERONE400 MG PO
[2016-12-31] MEDS ORDERED: CORDARONE PO (18:16)
[2016-12-31] MEDS ORDERED: NOVOLOG SC (18:23)
[2016-12-31 21:06] LABS: B NATRIURETIC PEPTIDE (BNP) 148.7 PG/ML (< 100.0)
[2016-12-31 21:18] LABS: ALBUMIN 3.1 G/DL (3.5-5.0); CPK 43 U/L (0-200); DIRECT BILIRUBIN 0.2 MG/DL (0.0-0.4); FREE T4 1.31 NG/DL (0.76-1.46); INDIRECT BILIRUBIN(NOT ORDER) 0.5 MG/DL (0.1-0.9); PHOSPHORUS, SERUM 2.8 MG/DL (2.5-4.5); SGOT(AST) 22 U/L (5-40); SGPT(ALT) 25 U/L (5-65); TOTAL BILIRUBIN 0.7 MG/DL (0-1.2); TOTAL PROTEIN 6.7 G/DL (6.0-8.5)
[2016-12-31 21:29] LABS: ALKALINE PHOSPHATASE 110 U/L (45-117); CK-MB < 0.5 NG/ML
[2016-12-31 22:01] LABS: GLYCOHEMOGLOBIN (HbA1c) 6.5 % (4.7-6.1)
[2016-12-31 22:09] LABS: PROCALCITONIN 0.07 ng/mL (<0.5)
[2017-01-01 01:11] LABS: BASOPHILS 0.3 %; BASOPHILS ABSOLUTE 0.02 10/3/uL (0.0-0.16); EOSINOPHILS 0.5 %; EOSINOPHILS ABSOLUTE 0.03 10/3/uL (0.0-0.53); HEMATOCRIT 30.1 % (40.0-51.0); HEMOGLOBIN 10.4 g/dL (13.6-17.8); IMMATURE GRANULOCYTES ABSOLUTE 0.06 10/3/uL (0.0-0.11); LYMPHOCYTES 11.1 %; LYMPHOCYTES ABSOLUTE 0.68 10/3/uL (0.67-4.30); MEAN CORPUS HGB CONC 34.6 g/dL (32.0-36.0); MEAN CORPUSCULAR HEMOGLOB 35.7 pg (26.0-34.0); MEAN CORPUSCULAR VOLUME 103.4 fL (80-100); MEAN PLATELET VOLUME 9.8 fL (9.2-13.0); MONOCYTES 11.4 %; NEUTROPHILS 75.7 %; NEUTROPHILS ABSOLUTE 4.66 10/3/uL (2.02-8.40); PLATELET COUNT 204 10/3/uL (150-400); RBC DISTRIBUTION WIDTH 16.4 % (12.0-16.0); RED CELL COUNT 2.91 10/6/uL (4.7-6.1); WHITE BLOOD CELLS 6.2 10/3/uL (4.5-10.5)
[2017-01-01 01:13] LABS: MANUAL DIFF NO %
[2017-01-01 01:27] LABS: A/G RATIO 0.8 (0.7-1.9); ALBUMIN 2.7 G/DL (3.5-5.0); ALKALINE PHOSPHATASE 99 U/L (45-117); BUN (BLOOD UREA NITROGEN) 15 MG/DL (6-23); CALCIUM, SERUM 8.4 MG/DL (8.5-10.4); CHLORIDE, SERUM 110 MMOL/L (96-112); CO2 (CARBON DIOXIDE) 25 MMOL/L (24-34); CREATININE 0.79 MG/DL (0.70-1.30); GFR AFRICAN AMERICAN 105 ML/MIN (>=60); GFR NON AFRICAN AMERICAN 90 ML/MIN (>=60); GLOBULIN 3.3 G/DL (2.5-4.1); GLUCOSE, SERUM 200 MG/DL (60-99); POTASSIUM, SERUM 4.2 MMOL/L (3.5-5.3); SGOT(AST) 17 U/L (5-40); SGPT(ALT) 20 U/L (5-65); SODIUM, SERUM 143 MMOL/L (135-148); TOTAL BILIRUBIN 0.8 MG/DL (0-1.2)
[2017-01-01 01:29] LABS: CPK 30 U/L (0-200); TROPONIN I <0.02 NG/ML (<0.05)
[2017-01-01 01:30] LABS: CK-MB < 0.5 NG/ML
[2017-01-01 01:39] LABS: INTERNATIONAL NORMAL RATI 2.2 UNITS (-)
[2017-01-01 08:59] LABS: CPK 35 U/L (0-200); TROPONIN I <0.02 NG/ML (<0.05)
[2017-01-01 09:00] LABS: CK-MB < 0.5 NG/ML
[2017-01-01 10:59] LABS: RETICULOCYTE COUNT 3.4 % (0.5-2.5); RETICULOCYTE COUNT ABSOLUTE 105.4 10/3/uL (20.2-119.8)
[2017-01-01 11:28] LABS: FERRITIN 116 NG/ML (26-388)
[2017-01-01 15:25] LABS: ASCORBIC ACID (UR NOT ORDER) 40 (NEG); BILIRUBIN, URINE NEGATIVE (NEG); KETONE, URINE NEGATIVE (NEG); LEUKOCYTE ESTERASE(NOT OR NEG (NEG); WBC (NOT ORDERED) (RFLEX) 3 (0-5)
[2017-01-02 06:13] LABS: HEMOGLOBIN 10.3 g/dL (13.6-17.8); INTERNATIONAL NORMAL RATI 2.1 UNITS (-); MANUAL DIFF YES %; MEAN CORPUS HGB CONC 33.2 g/dL (32.0-36.0); MEAN CORPUSCULAR HEMOGLOB 34.8 pg (26.0-34.0); MEAN CORPUSCULAR VOLUME 104.7 fL (80-100); MEAN PLATELET VOLUME 10.7 fL (9.2-13.0); PLATELET COUNT 221 10/3/uL (150-400); PROTIME (NOT ORD) 23.6 SEC (12.0-14.5); RBC DISTRIBUTION WIDTH 16.6 % (12.0-16.0); RED CELL COUNT 2.96 10/6/uL (4.7-6.1); WHITE BLOOD CELLS 5.8 10/3/uL (4.5-10.5)
[2017-01-02 06:18] LABS: CALCIUM, SERUM 8.5 MG/DL (8.5-10.4); CHLORIDE, SERUM 107 MMOL/L (96-112); CO2 (CARBON DIOXIDE) 22 MMOL/L (24-34); CREATININE 0.96 MG/DL (0.70-1.30); GFR AFRICAN AMERICAN 92 ML/MIN (>=60); GFR NON AFRICAN AMERICAN 79 ML/MIN (>=60); GLUCOSE, SERUM 224 MG/DL (60-99); POTASSIUM, SERUM 4.5 MMOL/L (3.5-5.3); SODIUM, SERUM 138 MMOL/L (135-148)
[2017-01-02 06:19] LABS: BUN (BLOOD UREA NITROGEN) 19 MG/DL (6-23)
[2017-01-02 06:34] LABS: BAND NEUTROPHILS 6 %; IMMATURE GRANS ABSOLUTE (CALC) 0.06 10/3/uL (0.0-0.11); LYMPHOCYTES 4 %; LYMPHOCYTES ABSOLUTE (CALC) 0.23 10/3/uL (0.67-4.30); METAMYELOCYTES 1 %; MONOCYTES 2 %; MONOCYTES ABSOLUTE (CALC) 0.12 10/3/uL (0.21-1.20); NEUTROPHILS ABSOLUTE (CALC) 5.39 10/3/uL (2.02-8.40); SEGMENTED NEUTROPHIL (0) 87 %; TOTAL NUCLEATED CELLS 100
[2017-01-02 06:35] LABS: BURR CELLS 1+ (3-10/OIF) (0-2/OIF); MACROCYTES 1+ (5-10/OIF) (0-5/OIF); PLATELET ESTIMATE ADQ (ADEQUATE)
[2017-01-02 10:18] LABS: A/G 1.47 RATIO (0.9-2.10); ALB RELATIVE % 59.5 % (60.0-89.0); ALBUMIN (ELECTRO) 3.57 GM/DL (3.2-5.5); ALPHA 1 (ELECTRO) 0.34 GM/DL (0.1-0.4); ALPHA 1 RELAT % (NOT ORD) 5.6 % (1.0-4.0); ALPHA 2 RELAT % 16.6 % (4.5-26.0); BETA RELATIVE % 13.4 % (9.0-22.0); GAMMA GLOBULIN (SPE) 0.29 G/DL (0.70-1.60); GAMMA RELAT % 4.9 % (6.0-22.0)
[2017-01-02 12:44] LABS: C-REACTIVE PROTEIN 28.7 MG/L (<8.0)
[2017-01-03 06:57] LABS: BASOPHILS 0.1 %; BASOPHILS ABSOLUTE 0.01 10/3/uL (0.0-0.16); EOSINOPHILS 0 %; HEMATOCRIT 29.5 % (40.0-51.0); HEMOGLOBIN 9.8 g/dL (13.6-17.8); LYMPHOCYTES 5.5 %; LYMPHOCYTES ABSOLUTE 0.53 10/3/uL (0.67-4.30); MEAN CORPUS HGB CONC 33.2 g/dL (32.0-36.0); MEAN CORPUSCULAR HEMOGLOB 34.9 pg (26.0-34.0); MEAN PLATELET VOLUME 10.4 fL (9.2-13.0); MONOCYTES 7.7 %; MONOCYTES ABSOLUTE 0.74 10/3/uL (0.21-1.20); NEUTROPHILS 85.7 %; NEUTROPHILS ABSOLUTE 8.29 10/3/uL (2.02-8.40); PLATELET COUNT 217 10/3/uL (150-400); RBC DISTRIBUTION WIDTH 16.7 % (12.0-16.0); RED CELL COUNT 2.81 10/6/uL (4.7-6.1)
[2017-01-03 06:59] LABS: MANUAL DIFF NO %; WHITE BLOOD CELLS 9.7 10/3/uL (4.5-10.5)
[2017-01-03 07:01] LABS: INTERNATIONAL NORMAL RATI 2.6 UNITS (-)
[2017-01-03 07:12] LABS: BUN (BLOOD UREA NITROGEN) 20 MG/DL (6-23); CALCIUM, SERUM 8.5 MG/DL (8.5-10.4); CHLORIDE, SERUM 109 MMOL/L (96-112); CO2 (CARBON DIOXIDE) 23 MMOL/L (24-34); GFR AFRICAN AMERICAN 87 ML/MIN (>=60); GFR NON AFRICAN AMERICAN 75 ML/MIN (>=60); POTASSIUM, SERUM 4.4 MMOL/L (3.5-5.3); SODIUM, SERUM 139 MMOL/L (135-148)
[2017-01-03 07:13] LABS: GLUCOSE, SERUM 162 MG/DL (60-99)
[2017-01-03 12:36] LABS: IMMUNOGLOBULIN A 112 MG/DL (70-420); IMMUNOGLOBULIN G 253 MG/DL (673-1464); IMMUNOGLOBULIN M 40 MG/DL (30-270)
[2017-01-04 05:54] LABS: INTERNATIONAL NORMAL RATI 2.7 UNITS (-); PROTIME (NOT ORD) 28.1 SEC (12.0-14.5)
[2017-01-04 05:55] LABS: BUN (BLOOD UREA NITROGEN) 20 MG/DL (6-23); CHLORIDE, SERUM 109 MMOL/L (96-112); CO2 (CARBON DIOXIDE) 25 MMOL/L (24-34); CREATININE 0.97 MG/DL (0.70-1.30); GFR AFRICAN AMERICAN 91 ML/MIN (>=60); GFR NON AFRICAN AMERICAN 78 ML/MIN (>=60); GLUCOSE, SERUM 159 MG/DL (60-99); POTASSIUM, SERUM 4.1 MMOL/L (3.5-5.3); SODIUM, SERUM 140 MMOL/L (135-148)
[2017-01-04 05:58] LABS: BASOPHILS 0.1 %; BASOPHILS ABSOLUTE 0.01 10/3/uL (0.0-0.16); EOSINOPHILS 0 %; HEMATOCRIT 29.5 % (40.0-51.0); HEMOGLOBIN 9.7 g/dL (13.6-17.8); IMMATURE GRANULOCYTES 1.3 %; IMMATURE GRANULOCYTES ABSOLUTE 0.11 10/3/uL (0.0-0.11); LYMPHOCYTES 7.5 %; LYMPHOCYTES ABSOLUTE 0.66 10/3/uL (0.67-4.30); MEAN CORPUS HGB CONC 32.9 g/dL (32.0-36.0); MEAN CORPUSCULAR HEMOGLOB 34.8 pg (26.0-34.0); MEAN CORPUSCULAR VOLUME 105.7 fL (80-100); MEAN PLATELET VOLUME 10.3 fL (9.2-13.0); MONOCYTES 9.7 %; MONOCYTES ABSOLUTE 0.85 10/3/uL (0.21-1.20); NEUTROPHILS 81.4 %; NEUTROPHILS ABSOLUTE 7.16 10/3/uL (2.02-8.40); PLATELET COUNT 216 10/3/uL (150-400); RBC DISTRIBUTION WIDTH 16.9 % (12.0-16.0); RED CELL COUNT 2.79 10/6/uL (4.7-6.1); WHITE BLOOD CELLS 8.8 10/3/uL (4.5-10.5)
[2017-01-04 06:01] LABS: MANUAL DIFF NO %
[2017-01-05 05:29] LABS: INTERNATIONAL NORMAL RATI 2.1 UNITS (-)
[2017-01-05 05:32] LABS: PROTIME (NOT ORD) 23.2 SEC (12.0-14.5)
[2017-01-05] MEDS ORDERED: C1 PO (11:28)
[2017-01-05] MEDS ORDERED: LOP25 PO (11:46)
[2017-01-05] MEDS ORDERED: IVVIBRA (11:47)
[2017-01-05] MEDS ORDERED: CEFT5 PO (11:48)
[2017-01-07] MEDS ORDERED: CEFT5 PO (15:51)
[2017-01-14] MEDS ORDERED: PEP20 PO (13:14)
[2017-01-14] MEDS ORDERED: PRILO PO (13:16)
[2017-01-14] MEDS ORDERED: IMU PO (13:18)
[2017-01-15] MEDS ORDERED: SPIRIVA INH (02:07)
[2017-01-15] MEDS ORDERED: VENTOLIN HFA INH (02:07)
[2017-01-15] MEDS ORDERED: ADVAIR250 INH (02:07)
[2017-01-15] MEDS ORDERED: ALBUTEROL0.083 % INH (02:08)
[2017-01-15] MEDS ORDERED: CORDARONE PO (02:08)
[2017-01-15] MEDS ORDERED: FLONASE NAS (02:08)
[2017-01-15] MEDS ORDERED: IMU PO (02:09)
[2017-01-15] MEDS ORDERED: C5 PO (02:09)
[2017-01-15] MEDS ORDERED: SUCR PO (02:09)
[2017-01-15] MEDS ORDERED: CARDCD240 PO (02:09)
[2017-01-15] MEDS ORDERED: PEP20 PO (02:09)
[2017-01-15] MEDS ORDERED: ZYRTEC ALLGY10 MG PO (02:10)
[2017-01-15] MEDS ORDERED: Z100 PO (02:10)
[2017-01-15] MEDS ORDERED: PROBIOTIC OTC PO (02:10)
[2017-01-15] MEDS ORDERED: NOVOLOG SC ×2 (02:12)
[2017-01-15] MEDS ORDERED: FOLIC ACID400 MC1 PO (02:13)
[2017-01-15] MEDS ORDERED: CYANO1000T PO (02:13)
[2017-01-15] MEDS ORDERED: CENTRUM PO (02:13)
[2017-01-15] MEDS ORDERED: LANTUSCART SC (02:13)
[2017-01-15] MEDS ORDERED: KLONO1 PO (02:13)
[2017-01-15] MEDS ORDERED: LOP25 PO (02:14)
[2017-01-15] MEDS ORDERED: KLONO5 PO (02:14)
[2017-01-15] MEDS ORDERED: VIBRATAB100 MG PO (02:15)
[2017-01-15] MEDS ORDERED: P10 PO (02:15)
[2017-01-15] MEDS ORDERED: CEFT5 PO (02:16)
[2017-01-15] MEDS ORDERED: PENTASA500 MG PO (02:16)
[2017-01-15] MEDS ORDERED: LIPITOR20 PO (02:17)
[2017-01-15] MEDS ORDERED: NITROSTAT0.4 MG SL (02:18)
[2017-01-20] MEDS ORDERED: FLORASTOR250 MG PO (10:45)
[2017-01-20] MEDS ORDERED: OMNICEF300 PO (10:48)
== END 2017-01-05 14:10 | disposition home or self-care (01) | DRG 308 ==
LOC: ER 17:23 → 6NO 19:07
PROVIDERS: Emergency Medicine; Internal Medicine
DX: I48.0 Paroxysmal atrial fibrillation (principal); J18.9 Pneumonia, unspecified organism; K50.90 Crohn's disease, unspecified, without complications; E11.65 Type 2 diabetes mellitus with hyperglycemia; D80.1 Nonfamilial hypogammaglobulinemia; J44.0 Chronic obstructive pulmonary disease with (acute) lower respiratory infection; D53.9 Nutritional anemia, unspecified; Q21.1 Atrial septal defect; J44.1 Chronic obstructive pulmonary disease with (acute) exacerbation; I48.1 Persistent atrial fibrillation; Y95 Nosocomial condition; I25.10 Atherosclerotic heart disease of native coronary artery without angina pectoris; K21.9 Gastro-esophageal reflux disease without esophagitis; I34.0 Nonrheumatic mitral (valve) insufficiency; E78.5 Hyperlipidemia, unspecified; E53.8 Deficiency of other specified B group vitamins; M10.9 Gout, unspecified; G47.33 Obstructive sleep apnea (adult) (pediatric); Z87.891 Personal history of nicotine dependence; Z88.5 Allergy status to narcotic agent; Z91.048 Other nonmedicinal substance allergy status; Z79.01 Long term (current) use of anticoagulants; Z79.4 Long term (current) use of insulin; Z95.1 Presence of aortocoronary bypass graft; Z86.73 Personal history of transient ischemic attack (TIA), and cerebral infarction without residual deficits; Z79.899 Other long term (current) drug therapy
CPT/HCPCS: 71020; 71250; 80048; 80053; 80076; 80202; 81001; 82550; 82553; 82607; 82728; 82784; 82962; 83036; 83605; 83615; 83735; 83880; 84100; 84145; 84155; 84165; 84439; 84443; 84484; 85025; 85045; 85610; 85730; 86140; 86334; 87040; 87070; 87205; 87449; 93005; 94640; 96365; 96366; 96375; 99285; A9270-GY; J0692; J2920; J2930; J3370